=== PATIENT | male | born 1965 | race Caucasian/White ===

== ENCOUNTER 2019-12-27 09:12 | Outpatient (REF) | payer OTHER, SELFPAY ==
[2019-12-27 09:33] LABS: MANUAL DIFF FLAG NO
[2019-12-27 09:35] LABS: Basophils Absolute Auto 0.1 X10*3/uL (0.0-0.2); Basophils Percent Auto 0.9 % (0-2); Eosinophils Absolute Auto 0.3 X10*3/uL (0.0-0.4); Eosinophils Percent Auto 5.3 % (0-4); Hematocrit 44.9 % (42-52); Hemoglobin 15.5 g/dl (14.0-18.0); Imm Gran Abs Auto 0.01 X10*3/uL (0.00-0.03); Imm Gran Pct Auto 0.2 % (0.0-0.4); Lymphocytes Absolute Auto 1.4 X10*3/uL (1.2-4.9); Lymphocytes Percent Auto 25.2 % (20-40); Mean Corpuscular HGB Conc 34.5 g/dl (31.0-36.0); Mean Corpuscular Hemoglobin 31.6 pg (27.0-33.0); Mean Corpuscular Volume 91.6 fL (80-98); Mean Platelet Volume 9.1 fL (9.4-12.4); Monocytes Absolute Auto 0.4 X10*3/uL (0.1-1.2); Neutrophils Absolute Auto 3.3 X10*3/uL (2.0-8.3); Neutrophils Percent Auto 60.4 % (45-73); Platelet Count 180 X10*3/uL (160-400); Red Cell Distribution Width 12.2 % (11.0-16.0); White Blood Count 5.5 X10*3/uL (4.8-10.8)
[2019-12-27 10:12] LABS: Alanine Aminotransferase 32 U/L (0-40); Albumin Level 4.6 g/dL (3.5-5.0); Alkaline Phosphatase 134 U/L (39-117); Anion Gap 11 (12-20); Aspartate Amino Transferase 21 U/L (5-37); Blood Urea Nitrogen 10 mg/dL (9-16); Carbon Dioxide 29 mmol/L (22-29); Chloride 103 mmol/L (96-108); Cholesterol 92 mg/dL; Estimated Glomerular Filt Rate > 60; Glucose Random 110 mg/dL (60-115); HDL Cholesterol 29 mg/dL; LDL Cholesterol Calculated 31 mg/dl; Potassium 4.3 mmol/l (3.3-5.1); Sodium 139 mmol/L (135-145); Triglycerides 163 mg/dL
[2019-12-27 10:20] LABS: Prostate Specific Antigen 0.42 ng/mL (<0.05-4.0); Thyroid Stimulating Hormone 1.14 mIU/mL (0.32-4.0); Vitamin D 25-OH Total 30.6 ng/mL (>30)
== END 2019-12-27 09:13 | disposition home or self-care (01) ==
LOC: HO.LAB 09:12
PROVIDERS: Visit Provider Internal Medicine
DX: E55.9 Vitamin D deficiency, unspecified (principal); Z00.00 Encounter for general adult medical examination without abnormal findings; E78.1 Pure hyperglyceridemia; F41.9 Anxiety disorder, unspecified
CPT/HCPCS: 36415; 80053; 80061; 82306; 84153; 84443; 85025

== ENCOUNTER 2020-08-28 07:09 | Outpatient (REF) | payer OTHER, SELFPAY ==
[2020-08-28 07:47] LABS: MANUAL DIFF FLAG NO
[2020-08-28 07:51] LABS: Basophils Absolute Auto 0.1 X10*3/uL (0.0-0.2); Basophils Percent Auto 1.1 % (0-2); Eosinophils Absolute Auto 0.4 X10*3/uL (0.0-0.4); Hematocrit 43.7 % (42-52); Hemoglobin 15.3 g/dl (14.0-18.0); Imm Gran Abs Auto 0.02 X10*3/uL (0.00-0.03); Imm Gran Pct Auto 0.3 % (0.0-0.4); Lymphocytes Absolute Auto 1.5 X10*3/uL (1.2-4.9); Lymphocytes Percent Auto 24.4 % (20-40); Mean Corpuscular Hemoglobin 31.5 pg (27.0-33.0); Mean Corpuscular Volume 89.9 fL (80-98); Mean Platelet Volume 9.2 fL (9.4-12.4); Monocytes Absolute Auto 0.6 X10*3/uL (0.1-1.2); Neutrophils Absolute Auto 3.7 X10*3/uL (2.0-8.3); Neutrophils Percent Auto 59.2 % (45-73); Platelet Count 190 X10*3/uL (160-400); Red Blood Count 4.86 X10*6/uL (4.60-5.80); Red Cell Distribution Width 12.1 % (11.0-16.0); White Blood Count 6.3 X10*3/uL (4.8-10.8)
[2020-08-28 08:13] LABS: Alanine Aminotransferase 29 U/L (0-40); Albumin Level 4.4 g/dL (3.5-5.0); Alkaline Phosphatase 163 U/L (39-117); Anion Gap 15 (12-20); Aspartate Amino Transferase 17 U/L (5-37); Bilirubin Total 0.6 mg/dL (0.0-1.0); Blood Urea Nitrogen 16 mg/dL (9-16); Calcium 8.8 mg/dL (8.4-10.2); Carbon Dioxide 23 mmol/L (22-29); Chloride 106 mmol/L (96-108); Cholesterol 104 mg/dL; Estimated Glomerular Filt Rate > 60; Glucose Fasting 116 mg/dL (60-99); HDL Cholesterol 25 mg/dL; Potassium 3.9 mmol/L (3.3-5.1); Sodium 140 mmol/L (135-145); Total Protein 6.9 g/dL (6.5-8.0); Triglycerides 400 mg/dL
[2020-08-28 08:35] LABS: Thyroid Stimulating Hormone 1.22 uIU/mL (0.32-4.0); Vitamin D 25-OH Total 28.2 ng/mL (>30)
== END 2020-08-28 07:10 | disposition home or self-care (01) ==
LOC: HO.LAB 07:09
PROVIDERS: PCP Internal Medicine; Visit Provider Internal Medicine
DX: E78.1 Pure hyperglyceridemia (principal); E55.9 Vitamin D deficiency, unspecified
CPT/HCPCS: 36415; 80053; 80061; 82306; 84443; 85025

== ENCOUNTER 2020-12-25 10:07 | Outpatient (REF) | payer OTHER, SELFPAY ==
[2020-12-25 10:59] LABS: Appearance Urine CLEAR; Color Urine YELLOW; Glucose Urine UA NEG (NEG); Leukocyte Esterase Urine NEG (NEG); Nitrite Urine NEG (NEG); Specific Gravity - Urine >= 1.030 (1.005-1.025); Urine Blood NEG (NEG); Urine Ketones NEG (NEG); Urine Protein NEG (NEG-TRACE)
[2020-12-25 11:28] LABS: Alanine Aminotransferase 27 U/L (0-40); Albumin Level 4.8 g/dL (3.5-5.0); Alkaline Phosphatase 127 U/L (39-117); Anion Gap 14 (12-20); Aspartate Amino Transferase 20 U/L (5-37); Blood Urea Nitrogen 14 mg/dL (9-16); Carbon Dioxide 25 mmol/L (22-29); Chloride 104 mmol/L (96-108); Cholesterol 124 mg/dL; Estimated Glomerular Filt Rate > 60; Glucose Fasting 113 mg/dL (60-99); HDL Cholesterol 32 mg/dL; LDL Cholesterol Calculated 36 mg/dl; Potassium 4.6 mmol/L (3.3-5.1); Sodium 138 mmol/L (135-145); Total Protein 7.4 g/dL (6.5-8.0); Triglycerides 281 mg/dL
[2020-12-25 12:00] LABS: Vitamin D 25-OH Total 29.8 ng/mL (>30)
== END 2020-12-25 10:08 | disposition home or self-care (01) ==
LOC: HO.LAB 10:07
PROVIDERS: PCP Internal Medicine; Visit Provider Internal Medicine
DX: E78.1 Pure hyperglyceridemia (principal); E55.9 Vitamin D deficiency, unspecified
CPT/HCPCS: 36415; 80053; 80061; 81003; 82306

== ENCOUNTER → 2021-02-23 15:44 | Outpatient (BNVA) | payer OTHER, SELFPAY | PROVIDERS: PCP Internal Medicine; Visit Provider Surgery ==

== ENCOUNTER 2021-03-29 15:26 | Outpatient (REF) | payer OTHER, SELFPAY ==
--- NOTE | ~2021-03-29 | US_ITS ---
EXAMINATION: US ABDOMEN LIMITED CLINICAL INFORMATION: Localized swelling, mass and lump, unspecified. Subcutaneous mass. History of cyst excision to area of concern in 2019. COMPARISON: None TECHNIQUE: Real-time imaging of the right back. FINDINGS: There is a 4.2 x 4.1 x 2.3 cm solid heterogeneous appearing lesion just deep to the skin in the area of palpable abnormality. This has slightly irregular lobulated contours. This appears hypervascular. There may be small calcifications. Ultrasound appearance is nonspecific. This would be amenable to ultrasound-guided aspiration/biopsy. US/US abdomen limited IMPRESSION: 4.2 x 4.1 x 2.3 cm heterogeneous hypervascular irregularly-shaped lesion. Ultrasound appearance is nonspecific. This would be amenable to ultrasound-guided biopsy.
== END 2021-03-29 15:27 | disposition home or self-care (01) ==
LOC: HO.US 15:26
PROVIDERS: Visit Provider Surgery
DX: R22.9 Localized swelling, mass and lump, unspecified (principal)
CPT/HCPCS: 76705

== ENCOUNTER → 2021-05-12 14:57 | Outpatient (BNVA) | payer OTHER, SELFPAY | PROVIDERS: PCP Internal Medicine; Visit Provider Surgery | DX: Z13.89 Encounter for screening for other disorder (principal) ==

== ENCOUNTER 2021-05-27 08:34 | Day surgery (SDC) | payer OTHER, SELFPAY ==
[2021-05-23 12:51] VITALS: BMI 25.3
--- NOTE | 2021-05-26 10:00 | HO.ANESPROP2 ---
Documented by User: Leeanna Kingston NP 05/26/21 10:00 HPI - Anesthesia Eval Consult details Narrative: 55yo M for Colonoscopy [facility] Active Problems Active Problems: All Active Problems (Updated 05/23/21 @ 12:43 by Sangeeta Eaton RN) Subcutaneous mass (Acute) Hyperlipidemia (Acute) Past Medical History Medical History Anxiety History of COVID-19 Hyperlipidemia Subcutaneous mass Family History Family History Other Family history of cancer Surgical History Surgical History H/O colonoscopy History of knee surgery Social History Social History Alcohol intake: current Alcohol intake frequency: a few times a month Patient Tobacco Use Status: Never used Tobacco Use of substances other than those prescribed or required for medical reasons: No Advance Directives: No Advance Directives Information Provided: Yes Advance Directives on File: No Meds Allergies Allergy/AdvReac Type Severity Reaction Status Date / Time No Known Allergies Allergy Verified 05/12/21 15:10 [No Known Allergies*] Home Medications Medication Instructions Recorded Confirmed Last Taken Type cholecalciferol (vitamin D3) 25 25 mcg PO DAILY 02/23/21 05/23/21 Unknown History mcg (1,000 unit) tablet rosuvastatin 40 mg tablet 40 mg PO DAILY 02/23/21 05/23/21 Unknown History sertraline 50 mg tablet 50 mg PO DAILY 02/23/21 05/23/21 Unknown History Exam Exam Date and Time: May 26, 2021 1000 Height,Weight and Vital Signs: Height 5 ft 6 in Weight 71.214 kg Assessment and Plan Assessment Anesthesia Assessment: Chart Reviewed Documented by User: Dixie Meza MD 05/27/21 09:50 PMFSH Past Medical History Medical History Anxiety History of COVID-19 Hyperlipidemia Subcutaneous mass Functional capacity: independent ambulation Family History Family History Other Family history of cancer Family history of problems with anesthesia: No Surgical History Surgical History H/O colonoscopy History of knee surgery History of Problems with Anesthesia: No Social History Social History Alcohol intake: current Alcohol intake frequency: a few times a month Patient Tobacco Use Status: Never used Tobacco Use of substances other than those prescribed or required for medical reasons: No Advance Directives: No Advance Directives Information Provided: Yes Advance Directives on File: No Meds Allergies Allergy/AdvReac Type Severity Reaction Status Date / Time No Known Allergies Allergy Verified 05/12/21 15:10 [No Known Allergies*] Home Medications Medication Instructions Recorded Confirmed Last Taken Type cholecalciferol (vitamin D3) 25 25 mcg PO DAILY 02/23/21 05/23/21 Unknown History mcg (1,000 unit) tablet rosuvastatin 40 mg tablet 40 mg PO DAILY 02/23/21 05/23/21 Unknown History sertraline 50 mg tablet 50 mg PO DAILY 02/23/21 05/23/21 Unknown History Exam Airway Mallampati Class: II TM Dist: >3cm Neck ROM: Full Heart: RRR Lungs: CTA Assessment and Plan Final Anesthetic Review Family History of Problems with Anesthesia: No History of Problems with Anesthesia: No ASA Class: II Final Preanesthetic Review: No Changes in Pt Med Stat, Meds/Allgs Chart Reviewed, Consent Obtained/Reviewed and Anes Risks/Benef Reviewed Patient Risk: Low Procedure Risk: Low Anesthetic Plan Anesthetic Plan: MAC: Disposition: Standard PACU
[2021-05-27 09:14] VITALS: BP 140/83; PULSE 81; RESP 16; TEMP 36.9; O2SAT 97
[2021-05-27] MEDS: Lactated Ringers 1,000 ML 100 ML IVCONT (09:25)
--- NOTE | 2021-05-27 10:03 | MHC.SHP ---
Pre-Procedural Eval Section A Date of Service: 05/27/21 The patient is an INPATIENT: No Changes since office visit: No Cold of Flu in the past 2 weeks, No New Medical Problems, No Changes in Medication and No Patient answered all questions The History & Physical has been completed within 30 days and I have reviewed it.: Yes Section B Chief Complaint: screening Allergies: Allergies Allergy/AdvReac Type Severity Reaction Status Date / Time No Known Allergies Allergy Verified 05/12/21 15:10 [No Known Allergies*] Plan I have reviewed the history and physical and performed a pertinent physical examination on my patient. No changes have occurred unless specified.
[2021-05-27 10:57] VITALS: BP 109/73; PULSE 81; RESP 16; TEMP 36.5; O2SAT 96
--- NOTE | 2021-05-27 11:01 | PM.OP ---
Brief Operative Note Date of Service: 05/27/21 Pre-op diagnosis: screening Post-op diagnosis: same (polyps) Procedure: colonoscopy Surgeon: Valentin Tao Anesthesia: MAC Was an Day Care Provider used for this Procedure?: No Estimated blood loss (mL): 5 Pathology: other (polyps) Condition: stable Disposition: PACU
[2021-05-27 11:12] VITALS: BP 107/72; PULSE 76; RESP 18; O2SAT 100
--- NOTE | 2021-05-27 11:28 | OP_ITS ---
SURGEON: Valentin Tao MD INDICATIONS: Colon cancer screening and prior history of adenomatous colon polyps. PREOPERATIVE DIAGNOSIS: POSTOPERATIVE DIAGNOSIS: PROCEDURE PERFORMED: Colonoscopy to the terminal ileum with snare polypectomy. ESTIMATED BLOOD LOSS: COMPLICATIONS: ANESTHESIA: ASSISTANTS: SPECIMENS: MEDICATIONS: Monitored anesthesia care. DESCRIPTION OF PROCEDURE: History and physical were performed. The risks and benefits of the procedure were explained to the patient. Informed consent was obtained. The patient was placed in the left lateral decubitus position. A digital rectal exam was performed and was found to be normal. The Olympus pediatric video colonoscope was introduced into the rectum and advanced to the cecum without difficulty. The cecum was identified by transillumination, palpation, and identification of ileocecal valve. Examination was performed. The scope was removed. He tolerated the procedure well and was taken to recovery area in stable condition. FINDINGS: The terminal ileum was normal. Multiple colonic polyps were identified and removed with a snare. In the cecum were 3 polyps, the largest measuring approximately 10 mm. At 55 cm were 2 polyps, the largest measuring 10 mm. These were snared, but could not be recovered due to technical reasons. Polyps were also snared at 45 cm, 30 cm and 20 cm with the largest at 20 cm measuring 10 mm. The quality of prep was good. Retroflexed examination was normal. IMPRESSION: Colon polyps. RECOMMENDATION: 1. Follow up the biopsy results. 2. Repeat colonoscopy will likely be recommended for 3 years. MD LIVIA Boggs/RHETTL / [id number]
--- NOTE | 2021-05-27 11:31 | HO.POSTANES ---
Post Anesthesia Evaluation Post Anesthesia Evaluation Vital Signs: Vital Signs Temp Pulse Resp BP Pulse Ox 05/27/21 11:12 76 18 107/72 100 05/27/21 10:57 97.7 F 81 16 109/73 96 05/27/21 09:14 98.5 F 81 16 140/83 H 97 Anesthesia: Monitored Mental Status: Awake Pain Control: Satisfactory Nausea/Vomiting: None Hydration: Adequate Anesthesia-Related Issues: No Anes. Related Issues
== END 2021-05-27 11:40 | disposition home or self-care (01) ==
PROVIDERS: Visit Provider Internal Medicine Gastroenterology
PROC: 0DJD8ZZ Inspection of Lower Intestinal Tract, Via Natural or Artificial Opening Endoscopic (ICD-10-PCS; CPT 45378; principal; 2021-05-27 10:10)
DX: Z12.11 Encounter for screening for malignant neoplasm of colon (principal); D12.0 Benign neoplasm of cecum; D12.6 Benign neoplasm of colon, unspecified; Z86.010 Personal history of colon polyps
CPT/HCPCS: 45385; 88305

== ENCOUNTER 2021-07-12 07:26 | Day surgery (SDC) | payer OTHER, SELFPAY ==
--- NOTE | 2021-07-11 11:32 | P.CONAN_ITS ---
Documented by User: Leeanna Kingston NP 07/11/21 11:32 HPI - Anesthesia Eval Consult details Narrative: 55yo M for Excision Low Back Mass s/p colo 05/2021 with TIVA PMFSH Active Problems Active Problems: All Active Problems (Updated 05/23/21 @ 12:43 by Sangeeta Eaton RN) Subcutaneous mass (Acute) Hyperlipidemia (Acute) Past Medical History Medical History Anxiety History of COVID-19 Hyperlipidemia Subcutaneous mass Family History Family History Other Family history of cancer Family history of problems with anesthesia: No Surgical History Surgical History H/O colonoscopy History of knee surgery History of Problems with Anesthesia: No Social History Social History Alcohol intake: current Alcohol intake frequency: a few times a month Patient Tobacco Use Status: Never used Tobacco Are you DNR?: No Advance Directives: No Advance Directives Information Provided: Yes Meds Allergies Allergy/AdvReac Type Severity Reaction Status Date / Time No Known Allergies Allergy Verified 07/06/21 11:39 [No Known Allergies*] Home Medications Medication Instructions Recorded Confirmed Last Taken Type cholecalciferol (vitamin D3) 25 25 mcg PO DAILY 02/23/21 07/06/21 Unknown History mcg (1,000 unit) tablet rosuvastatin 40 mg tablet 40 mg PO DAILY 02/23/21 07/06/21 Unknown History sertraline 50 mg tablet 50 mg PO DAILY 02/23/21 07/12/21 07/12/21 History Exam Exam Date and Time: July 11, 2021 1132 Assessment and Plan Assessment Anesthesia Assessment: Chart Reviewed Final Anesthetic Review Family History of Problems with Anesthesia: No History of Problems with Anesthesia: No Documented by User: Dixie Meza MD 07/12/21 09:01 [facility] Past Medical History Medical History Anxiety History of COVID-19 Hyperlipidemia Subcutaneous mass Functional capacity: independent ambulation Family History Family History Other Family history of cancer Surgical History Surgical History H/O colonoscopy History of knee surgery Social History Social History Alcohol intake: current Alcohol intake frequency: a few times a month Patient Tobacco Use Status: Never used Tobacco Are you DNR?: No Advance Directives: No Advance Directives Information Provided: Yes Meds Allergies Allergy/AdvReac Type Severity Reaction Status Date / Time No Known Allergies Allergy Verified 07/06/21 11:39 [No Known Allergies*] Home Medications Medication Instructions Recorded Confirmed Last Taken Type cholecalciferol (vitamin D3) 25 25 mcg PO DAILY 02/23/21 07/06/21 Unknown History mcg (1,000 unit) tablet rosuvastatin 40 mg tablet 40 mg PO DAILY 02/23/21 07/06/21 Unknown History sertraline 50 mg tablet 50 mg PO DAILY 02/23/21 07/12/21 07/12/21 History Exam Airway Mallampati Class: II TM Dist: >3cm Neck ROM: Full Heart: RRR Lungs: CTA Assessment and Plan Final Anesthetic Review Final Preanesthetic Review: No Changes in Pt Med Stat, Meds/Allgs Chart Reviewed and Consent Obtained/Reviewed Patient Risk: Low Procedure Risk: Low Anesthetic Plan Anesthetic Plan: GA and MAC: Disposition: Standard PACU
[2021-07-12 06:17] VITALS: BMI 23.1
[2021-07-12 07:49] VITALS: BP 118/65; PULSE 86; RESP 17; TEMP 36.1; O2SAT 97
[2021-07-12] MEDS: Lactated Ringers 1,000 ML 100 ML IVCONT (08:05)
--- NOTE | 2021-07-12 09:27 | P.HPSUR_ITS ---
Pre-Procedural Eval Section A Date of Service: 07/12/21 Section B Chief Complaint: Localized swelling, mass and lump Details of Present Illness: Has a large mass on the lower back with discomfort Relevant Family History (Specify if Yes): No Relevant Social History: None Present Medications: see Short Stay Collaborative assessment Medical History: Significant History ( hyperlipidemia) History of Previous Operations: No relevant previous surgery Allergies: Allergies Allergy/AdvReac Type Severity Reaction Status Date / Time No Known Allergies Allergy Verified 07/06/21 11:39 [No Known Allergies*] Review of Systems Sugical H&P ROS: Negative: Constitution, Cardiovascular, Respiratory, Neurological, Psychiatric, Hem-Onc, Allergic/Immunologic, Gastrointestinal, Genitourinary, Musculoskeletal, Integumentary, Endocrine and Ey es/Ears/Nose/Throat Exam Surgical H&P Exam: Normal: HEENT, Normal: Heart, Normal: Lungs, Normal: Extremities, Normal: Abdomen, Normal: Skin and Normal: Neurological Exam Comment: subcutaneous mass on the lower back about cm in diameter well-defined, likely an epidermal inclusion cyst Plan Diagnosis/Plan: Unchanged I have reviewed the history and physical and performed a pertinent physical examination on my patient. No changes have occurred unless specified.
--- NOTE | 2021-07-12 10:29 | W.PM.OPN ---
Operative Note Operative Note Date of Service: 07/12/21 Narrative: Preop diagnosis: large epidermal inclusion cyst, lower back Postop diagnosis: The same Procedure: Excision of a large there will inclusion cyst from the lower back Surgeon: Roby Churchill MD The patient is a 55 year old male with note of a large mass on the lower back. This appeared to be well defined. He has had episode redness, tenderness as well as drainage and the overall presentation was consistent with an epidermal inclusion cyst. He understood the technique of excision under anesthesia. He was aware of the risks, benefits, and alternatives . He was brought to the operating room and placed in left lateral decubitus position under anesthesia via endotracheal tube. A surgical time-out was done. The the of the mass was prepped and draped. Lidocaine 1% was used for local anesthesia and the made an elliptical incision on the skin overlying this mass using blade 15. This carried down with electrocautery through the full-thickness of skin and subcutaneous fat until was able to visualize what appeared to be a cyst capsule. I sharply dissected the cyst capsule off of the rest of the subcutaneous layer with the cautery as well as Metzenbaum scissors. I continued to dissect posteriorly to separate the entire mass from the rest of the deep subcutaneous layer. I delivered the specimen. This measured about 5.5 cm by 3 cm. I irrigated the area of excision. I cauterized bleeding areas. Once hemostasis was ensured, proceeded then reapposed the deep subcutaneous layer with Dexon 3-0 interrupted sutures. Skin closure was achieved with Dexon 3-0 interrupted sutures. Dressings were applied. The area was infiltrated with Marcaine 0.5% for postop analgesia. The procedure was then completed . . The patient tolerated procedure well. There were no complications noted. Estimated blood loss about 30 cc The patient was extubated without difficulty and transferred to the recovery room with stable vital signs.
[2021-07-12 11:14] VITALS: BP 125/70; PULSE 90; RESP 16; TEMP 36.4; O2SAT 100
[2021-07-12 11:19] VITALS: BP 122/70; PULSE 86; RESP 16; O2SAT 96
[2021-07-12 11:24] VITALS: BP 122/74; PULSE 90; RESP 16; O2SAT 95
[2021-07-12 11:29] VITALS: BP 127/68; PULSE 91; RESP 16; O2SAT 94
[2021-07-12 11:44] VITALS: BP 111/68; PULSE 88; RESP 16; TEMP 36.1; O2SAT 95
--- NOTE | 2021-07-12 11:56 | P.CONAN_ITS ---
[facility], [facility] Active Problems Active Problems: All Active Problems (Updated 05/23/21 @ 12:43 by Sangeeta Eaton RN) Subcutaneous mass (Acute) Hyperlipidemia (Acute) Past Medical History Medical History Anxiety History of COVID-19 Hyperlipidemia Subcutaneous mass Functional capacity: independent ambulation Family History Family History Other Family history of cancer Family history of problems with anesthesia: No Surgical History Surgical History H/O colonoscopy History of knee surgery History of Problems with Anesthesia: No Social History Social History Alcohol intake: current Alcohol intake frequency: a few times a month Patient Tobacco Use Status: Never used Tobacco Are you DNR?: No Advance Directives: No Advance Directives Information Provided: Yes Meds Allergies Allergy/AdvReac Type Severity Reaction Status Date / Time No Known Allergies Allergy Verified 07/06/21 11:39 [No Known Allergies*] Active Medications: Current Medications Acetaminophen (Acetaminophen 325 Mg Tablet) 650 mg PO ONCE PRN PRN Reason: Pain, Mild (Pain Scale 1-3) Fentanyl (Fentanyl Citrate/Pf 100 Mcg/2 Ml Vial) 25 mcg IVPUSH Q5M PRN; Protocol PRN Reason: Pain, Moderate (Pain Scale 4-6 Lactated Ringer's (Lr) 1,000 mls @ 100 mls/hr IVCONT .Q10H PARVEZ Last Admin: 07/12/21 08:05 Dose: 100 mls/hr Documented by: Ondansetron HCl (Ondansetron Hcl 4 Mg/2 Ml Vial) 4 mg IVPUSH ONCE PRN PRN Reason: Nausea and Vomiting Oxycodone HCl (Oxycodone Hcl Immed Release 5 Mg Tablet) 5 mg PO ONCE PRN PRN Reason: Pain, Severe (Pain Scale 7-10) Home Medications Medication Instructions Recorded Confirmed Last Taken Type cholecalciferol (vitamin D3) 25 25 mcg PO DAILY 02/23/21 07/06/21 Unknown History mcg (1,000 unit) tablet rosuvastatin 40 mg tablet 40 mg PO DAILY 02/23/21 07/06/21 Unknown History sertraline 50 mg tablet 50 mg PO DAILY 02/23/21 07/12/21 07/12/21 History Exam Exam Date and Time: July 12, 2021 1156 Height,Weight and Vital Signs: Height 5 ft 7 in Weight 67.132 kg Last Vital Signs Temp 97.0 F 07/12/21 11:44 Pulse 88 07/12/21 11:44 Resp 16 07/12/21 11:44 BP 111/68 07/12/21 11:44 Pulse Ox 95 07/12/21 11:44 Assessment and Plan Final Anesthetic Review Family History of Problems with Anesthesia: No History of Problems with Anesthesia: No
--- NOTE | 2021-07-12 13:52 | HO.POSTANES ---
Post Anesthesia Evaluation Post Anesthesia Evaluation Vital Signs: Vital Signs Temp Pulse Resp BP Pulse Ox 07/12/21 11:44 97.0 F 88 16 111/68 95 07/12/21 11:29 91 16 127/68 94 07/12/21 11:24 90 16 122/74 95 07/12/21 11:19 86 16 122/70 96 07/12/21 11:14 97.5 F 90 16 125/70 100 07/12/21 07:49 97 F 86 17 118/65 97 Anesthesia: General Pain Control: Satisfactory Nausea/Vomiting: None Hydration: Adequate
== END 2021-07-12 13:02 | disposition home or self-care (01) ==
PROVIDERS: PCP Internal Medicine; Visit Provider Surgery
PROC: (CPT 21931; principal; 2021-07-12 09:40)
DX: D23.5 Other benign neoplasm of skin of trunk (principal); E78.5 Hyperlipidemia, unspecified; F41.1 Generalized anxiety disorder; Z86.16 Personal history of COVID-19
CPT/HCPCS: 21931; 88304; 88305; 88311; J0690; J1885; J2250; J2405; J3010

== ENCOUNTER 2022-10-23 11:53 | Outpatient (REF) | payer OTHER, SELFPAY ==
[2022-10-23 12:03] LABS: MANUAL DIFF FLAG NO
[2022-10-23 13:00] LABS: Basophils Absolute Auto 0.1 X10*3/uL (0.0-0.2); Basophils Percent Auto 0.7 % (0-2); Eosinophils Absolute Auto 0.4 X10*3/uL (0.0-0.4); Hematocrit 42.5 % (42.0-52.0); Imm Gran Abs Auto 0.02 X10*3/uL (0.00-0.03); Imm Gran Pct Auto 0.3 % (0.0-0.4); Lymphocytes Absolute Auto 1.7 X10*3/uL (1.2-4.9); Lymphocytes Percent Auto 22.1 % (20-40); Mean Corpuscular HGB Conc 35.3 g/dl (31.0-36.0); Mean Corpuscular Hemoglobin 31.6 pg (27.0-33.0); Mean Corpuscular Volume 89.7 fL (80.0-98.0); Mean Platelet Volume 9.3 fL (9.4-12.4); Monocytes Absolute Auto 0.6 X10*3/uL (0.1-1.2); Monocytes Percent Auto 7.8 % (2-11); Neutrophils Absolute Auto 4.8 x10*3/uL (2.0-8.3); Neutrophils Percent Auto 64.1 % (45-73); Platelet Count 189 X10*3/uL (160-400); Red Blood Count 4.74 X10*6/uL (4.60-5.80); Red Cell Distribution Width 12.2 % (11.0-16.0); White Blood Count 7.5 X10*3/uL (4.8-10.8)
[2022-10-23 13:56] LABS: Alanine Aminotransferase 34 U/L (0-40); Albumin Level 4.7 g/dL (3.5-5.0); Alkaline Phosphatase 109 U/L (39-117); Anion Gap 12 (12-20); Aspartate Amino Transferase 22 U/L (5-37); Blood Urea Nitrogen 12 mg/dL (9-16); Calcium 9.1 mg/dL (8.4-10.2); Carbon Dioxide 29 mmol/L (22-29); Chloride 106 mmol/L (96-108); Cholesterol 111 mg/dL (<200); Estimated Glomerular Filt Rate > 60; Glucose Fasting 97 mg/dL (60-99); HDL Cholesterol 32 mg/dL (>40); LDL Cholesterol Calculated 13 mg/dL (<100); Sodium 143 mmol/L (135-145); Total Protein 7.4 g/dL (6.5-8.0); Triglycerides 332 mg/dL (<150)
[2022-10-23 14:13] LABS: Thyroid Stimulating Hormone 1.34 uIU/mL (0.32-4.0); Vitamin D 25-OH Total 34.7 ng/mL (>30)
== END 2022-10-23 11:54 | disposition home or self-care (01) ==
LOC: HO.LAB 11:53
PROVIDERS: PCP Internal Medicine; Visit Provider Internal Medicine
DX: F41.9 Anxiety disorder, unspecified (principal); E78.1 Pure hyperglyceridemia; E55.9 Vitamin D deficiency, unspecified; R06.83 Snoring
CPT/HCPCS: 36415; 80053; 80061; 82306; 84443; 85025

== ENCOUNTER 2023-03-09 13:14 | Outpatient (AMB) | payer OTHER, SELFPAY ==
--- NOTE | 2023-03-09 13:16 | A.OFFVIS_ITS ---
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 He was referred by PCP for pulmonary evaluation. He reports symptoms suggestive of EYAL with loud snoring and daytime fatigue. He denies previous sleep study. He denies any respiratory symptoms otherwise and is not on any respiratory medications. He denies any pertinent family history. He denies any occupational exposures. He denies any environmental allergies. [facility] Medical History Anxiety History of COVID-19 Hyperlipidemia Subcutaneous mass Surgical History H/O colonoscopy History of knee surgery Family History Other Family history of cancer Social History (Updated 03/09/23 @ 13:26 by Linda Higuera LPN) Alcohol intake: current Alcohol intake frequency: a few times a month Patient Tobacco Use Status: Never used Tobacco Smoked in Last 30 Days: No Review of Systems Const Denies chills, Denies excessive sweating, Denies fever(s), Denies headache(s) and Denies night sweats Eyes Denies dry eyes, Denies irritation and Denies itchy eyes ENT Reports Normal hearing present, Denies headache(s), Denies nasal congestion, Denies nasal discharge, Denies post nasal drip and Denies sore throat Card Denies chest pain, Denies chest pain at rest, Denies chest pain with activity, Denies claudication, Denies leg edema, Denies dyspnea, Denies dyspnea on exertion, Denies orthopnea and Denies paroxysmal nocturnal dyspnea Resp Denies chest congestion, Denies cough, Denies excessive phlegm production, Denies pain on inspiration, Denies pain with cough, Denies dyspnea, Denies dyspnea on exertion, Denies stridor and Denies wheezing Musc Denies myalgias Neuro Reports Normal hearing present and Denies headache(s) Endo Denies excessive sweating Tadeo/Lymph Denies lymphadenopathy Aller/Immun Denies itchy eyes, Denies seasonal rhinorrhea and Denies wheezing Physical Exam Vital Signs: Last Vital Signs Pulse 70 03/09/23 13:17 BP 128/70 03/09/23 13:17 Pulse Ox 97 03/09/23 13:17 Oxygen Delivery Method Room Air 03/09/23 13:17 BMI result Body Mass Index 26.6 Const General: cooperative, healthy appearing, comfortable, no acute distress, well developed and alert Orientation/consciousness: patient oriented x3 Limitations: no limitations HEENT Head: Yes normal to inspection, Yes normocephalic and Yes atraumatic Ears: hearing grossly normal bilaterally and external ears normal Eyes General: appearance normal, both eyes and all related structures Eyelids: Yes eyelids normal Sclerae: sclerae normal EOM: EOMs intact bilaterally Neck Neck: Yes normal visual inspection and Yes no lymphadenopathy Lymphatic: no lymphadenopathy noted Chest Chest palpation & inspection: normal inspection of the chest Resp Effort & Inspection: normal respiratory effort, able to speak in complete sentences, no audible wheezes, no cough, no stridor, not tachypneic, no tripod positioning and no use of accessory muscles Auscultation: clear to auscultation bilaterally Cardio Jugular venous distension: no JVD Rate: regular rate Rhythm: regular rhythm Skin Other: warm, dry General skin exam: no rashes or lesions noted Neuro General: patient oriented x3 Cranial nerves: Yes Normal hearing present Cognition (Neuro): normal cognition Gait exam (Neuro): Normal gait present Extrem General: Yes normal to inspection, Yes capillary refill normal, Yes no clubbing, cyanosis or edema and Yes no pedal edema Psych Appearance: grossly normal and well kempt Speech and movement: Normal speech and movement present and Clear speech present Affect: normal affect Attitude: cooperative Thought process: Normal thought process present Thought content: Normal thought content present Insight: Good insight present (Psych) Judgement: Good judgement present (Psych) Assessment & Plan Assessment & Plan (1) Daytime somnolence: Code(s): R40.0 - Somnolence Plan Tevin reports symptoms consistent with obstructive sleep apnea. Will send for home sleep study to evaluate. All questions were answered and patient is in agreement of plan. Will follow up to review results. Orders: Orders RT home sleep study Today R40.0 - Somnolence Coding Level of Care Code New Pt Level 3 (92834) Diagnoses Daytime somnolence R40.0
[2023-03-09 13:17] VITALS: BP 128/70; PULSE 70; O2SAT 97; BMI 26.6
== END 2023-03-09 13:42 | disposition home or self-care (01) ==
PROVIDERS: PCP Internal Medicine; Referring Provider Internal Medicine; Visit Provider Nurse Practitioner Family
DX: R40.0 Somnolence (principal)
CPT/HCPCS: 99203

== ENCOUNTER → 2023-03-09 13:14 | Outpatient (BNVA) | payer OTHER, SELFPAY | PROVIDERS: PCP Internal Medicine; Referring Provider Internal Medicine; Visit Provider Nurse Practitioner Family ==

== ENCOUNTER 2023-05-05 07:27 | Outpatient (REF) | payer OTHER, SELFPAY ==
[2023-05-05 08:52] LABS: Prostate Specific Antigen 0.49 ng/mL (<0.05-4.0)
== END 2023-05-05 07:28 | disposition home or self-care (01) ==
LOC: HO.LAB 07:27
PROVIDERS: PCP Internal Medicine; Visit Provider Internal Medicine
DX: Z12.5 Encounter for screening for malignant neoplasm of prostate (principal)
CPT/HCPCS: 36415; 84153

== ENCOUNTER → 2023-11-06 07:51 | Outpatient (REF) | payer OTHER, SELFPAY | LOC: HO.SL 07:51 | PROVIDERS: PCP Internal Medicine; Visit Provider Nurse Practitioner Family | DX: Z13.89 Encounter for screening for other disorder (principal) ==

== ENCOUNTER → 2024-01-08 13:54 | Outpatient (REF) | payer OTHER, SELFPAY | LOC: HO.SL 13:54 | PROVIDERS: PCP Internal Medicine; Visit Provider Internal Medicine | DX: G47.33 Obstructive sleep apnea (adult) (pediatric) (principal); R40.0 Somnolence | CPT/HCPCS: 95806 ==

== ENCOUNTER → 2024-01-27 19:00 | Outpatient (BNV) | payer OTHER, SELFPAY | PROVIDERS: PCP Internal Medicine; Visit Provider Internal Medicine | DX: G47.33 Obstructive sleep apnea (adult) (pediatric) (principal) | CPT/HCPCS: 95806 ==

== ENCOUNTER 2024-02-08 15:07 | Outpatient (AMB) | payer OTHER, SELFPAY ==
[2024-02-08 15:10] VITALS: BP 128/76; PULSE 80; O2SAT 98; BMI 26.8
--- NOTE | 2024-02-08 15:10 | A.OFFVIS_ITS ---
Vital Signs 02/08/24 15:10 Height 5 ft 7 in Weight 171 lb 6 oz BMI 26.8 BP 128/76 Blood Pressure Location Rt brachial Position Sitting Pulse 80 Pulse Source Pulse Oximeter Pulse Oximetry (%) 98 Oxygen Delivery Method Room Air Intake Visit Reasons: Somnolence Allergies No Known Allergies [No Known Allergies*] Allergy (Verified 02/08/24 15:12) HPI HPI Somnolence: Details: Tevin is a pleasant 58 year old male, never smoker, with underlying GERD and anxiety. At the last visit, he was sent for home sleep study for significant loud snoring and daytime fatigue. Today he presents to review results. Today he denies any respiratory symptoms. [facility], [facility] Medical History Anxiety History of COVID-19 Hyperlipidemia Subcutaneous mass Surgical History H/O colonoscopy History of knee surgery Family History Other Family history of cancer Social History Alcohol intake: current Alcohol intake frequency: a few times a month Patient Tobacco Use Status: Never used Tobacco Review of Systems Const Denies chills, Denies excessive sweating, Denies fever(s), Denies headache(s) and Denies night sweats Eyes Denies dry eyes, Denies irritation and Denies itchy eyes ENT Reports Normal hearing present, Denies headache(s), Denies nasal congestion, Denies nasal discharge, Denies post nasal drip and Denies sore throat Card Denies chest pain, Denies chest pain at rest, Denies chest pain with activity, Denies claudication, Denies leg edema, Denies dyspnea, Denies dyspnea on exertion and Denies orthopnea Resp Denies chest congestion, Denies cough, Denies excessive phlegm production, Denies pain on inspiration, Denies pain with cough, Denies dyspnea, Denies dyspnea on exertion, Denies stridor and Denies wheezing Musc Denies myalgias Neuro Reports Normal hearing present and Denies headache(s) Endo Denies excessive sweating Tadeo/Lymph Denies lymphadenopathy Aller/Immun Denies itchy eyes, Denies seasonal rhinorrhea and Denies wheezing Physical Exam Vital Signs: Last Vital Signs Pulse 80 02/08/24 15:10 BP 128/76 02/08/24 15:10 Pulse Ox 98 02/08/24 15:10 Oxygen Delivery Method Room Air 02/08/24 15:10 BMI result Body Mass Index 26.8 Const General: cooperative, healthy appearing, comfortable, no acute distress, well developed and alert Nutritional Appearance: obese Orientation/consciousness: patient oriented x3 Limitations: no limitations HEENT Head: Yes normal to inspection, Yes normocephalic and Yes atraumatic Ears: hearing grossly normal bilaterally and external ears normal Eyes General: appearance normal, both eyes and all related structures Eyelids: Yes eyelids normal Sclerae: sclerae normal EOM: EOMs intact bilaterally Neck Neck: Yes normal visual inspection and Yes no lymphadenopathy Lymphatic: no lymphadenopathy noted Chest Chest palpation & inspection: normal inspection of the chest Resp Effort & Inspection: normal respiratory effort, able to speak in complete sentences, no audible wheezes, no cough, no stridor, not tachypneic, no tripod positioning and no use of accessory muscles Auscultation: clear to auscultation bilaterally Cardio Jugular venous distension: no JVD Rate: regular rate Rhythm: regular rhythm Skin Other: warm, dry General skin exam: no rashes or lesions noted Neuro General: patient oriented x3 Cranial nerves: Yes Normal hearing present Cognition (Neuro): normal cognition Gait exam (Neuro): Normal gait present Extrem General: Yes normal to inspection, Yes capillary refill normal, Yes no clubbing, cyanosis or edema and Yes no pedal edema Psych Appearance: grossly normal and well kempt Speech and movement: Normal speech and movement present and Clear speech present Affect: normal affect Attitude: cooperative Thought process: Normal thought process present Thought content: Normal thought content present Insight: Good insight present (Psych) Judgement: Good judgement present (Psych) Assessment & Plan Assessment & Plan (1) Severe obstructive sleep apnea: Code(s): G47.33 - Obstructive sleep apnea (adult) (pediatric) Category: Medical (2) Nocturnal hypoxemia: Code(s): G47.34 - Idiopathic sleep related nonobstructive alveolar hypoventilation Category: Medical Plan Reviewed sleep study results with patient which revealed severe EYAL with an AHI of 40 and mild nocturnal hypoxemia. Since patient is quite symptomatic, will start CPAP therapy. Will send in prescription for APAP mode and pressure settings of 6-20 cm with close monitoring for compliance and benefits. Sleep hygiene education reviewed. He is aware if there are any issues with the mask or CPAP machine, he will call the office. All questions were answered and patient is in agreement of plan. Will follow up in 8 weeks. Coding Level of Care Code Est Pt Level 4 (32956) Diagnoses Severe obstructive sleep apnea G47.33 Nocturnal hypoxemia G47.34
--- OUTSIDE RECORDS SUMMARY | 2024-02-08 15:10 | XMS_ITS | Patient Health Record ---
Author Organization Jovany Rasmussen DO, FACP Address [address] [place], [place] [phone] Care Team Providers Care Last Repairer Name Role Phone Jovany Rasmussen Primary Care Provider ALLERGIES No Known Allergies RESULTS Component Value Reference Range Notes Prostate Specific Antigen Reviewed date:05/05/2023 12:19:54 PM Interpretation:Normal Performing Lab:[facility], [address] [place] [id number] Notes/Report: Prostate Specific Antigen 0.49 <0.05-4.0 ng/mL PSA methodology: [place] i Chemiluminescent Microparticle Immunoassay (CMIA) REASON FOR REFERRAL No Information MEDICATIONS Medication SIG (Take, Route, Frequency, Duration) Notes Start Date End Date Status Vitamin D3 25 MCG (1000 UT) 1 tablet Ora lly Once a day for 90 days Active Sertraline HCl 50 MG 1 tablet Orally Onc e a day for 90 days Active Rosuvastatin Calcium 40 MG 1 tablet Oral ly Once a day for 90 days Active IMMUNIZATIONS Vaccine Route Administration Date Status Comme nts TDaP IM Intramuscular 06/26/2017 Administered Influenza Quad IM Intramuscular 01/06/2020 Administered COVID-19 Moderna Vaccine Unknown 05/29/2020 Administere d COVID-19 Moderna Vaccine Unknown 06/26/2020 Administere d SOCIAL HISTORY Tobacco Use: Social History Observation Description Date Details (start date - stop date) Never Smoker NA - NA Sex Assigned At : Social History Observation Description Sex Assigned At Unknown Tobacco Use/Smoking Question Answer Notes Patient is a nonsmoker Additional Findings: Tobacco Non-User Cu rrent non-smoker, currently using no form of tobacco Alcohol Screen Question Answer Notes Did you have a drink contain ing alcohol in the past year? Yes How often did you have a dri nk containing alcohol in the past year? 2 to 4 times a month (2 points) How many drinks did you have on a typical day when you were drinking in the past year? 1 or 2 drinks (0 point) How often did you have 6 or more drinks on one occasion in the past year? Never (0 point) Points 2 Interpretation Negative PROBLEMS Problem Type ICD Code Onset Dates Problem Status W/U Status Risk SNOMED Code Notes Problem Vitamin D deficiency (E55.9) Active confirmed 24604740 Problem Anxiety (F41.9) Active confirmed 069863 02 Problem Mass (R22.9) Active confirmed 382349347 Problem Hypertriglyceridemia (E78.1) Active confirmed 890367842 VITAL SIGNS Blood pressure diastolic 80 mm Hg 02/07/2023 Height 65 in 02/07/2023 Blood pressure systolic 132 mm Hg 02/07/2023 Weight 168 lbs 02/07/2023 BMI 27.95 kg/m2 02/07/2023 Encounters Encounter Location Date Provider Diagnosis Jovany Rasmussen DO, FACP [address] [place] [phone] 02/07/2023 Jovany Rasmussen Encounter for genera l adult medical examination without abnormal findings Z00.00 ; Anxiety F41.9 ; Hypertriglyceridemia E78.1 and Vitamin D deficiency E55.9 ASSESSMENTS Encounter Date Diagnosis Assessment Notes Treatment Notes Treatment Clinical Notes 02/07/2023 Encounter for genera l adult medical examination without abnormal findings (ICD-10 - Z00.00) Check PSA. Exercise three times a week. Diet, portion control, weight loss 02/07/2023 Anxiety (ICD-10 - F41.9) 02/07/2023 Hypertriglyceridemia (ICD-10 - E78.1) Low cholesterol diet; written instructions provided 02/07/2023 Vitamin D deficiency (ICD-10 - E55.9) PLAN OF TREATMENT Next Appt Details Provider Name:Jovany jean, 02/12/2024 09:45:00 AM, [address] [place] [address], [phone], Insurance Providers Payer Name Payer Address Payer Phone Subscriber Number Group Number Insured Name Patient Relationship to Insured Coverage Start Date Coverage End Date [facility] [address] [place] [phone] [id number] Tevin Blackburn Self - patient is the insured MEDICAL (GENERAL) HISTORY Medical History History ICD Code hyperlipidemia hypertriglyceridemia anxiety gastroesophageal reflux disease (GERD) obstructive airways disease, exercise in duced Surgical History Surgery Date(Month/Year) wisdom teeth extraction right knee arthroscopy
--- OUTSIDE RECORDS SUMMARY | 2024-02-08 15:10 | XMS_ITS ---
Author Organization Jovany Rasmussen DO, FACP Address [address] [place], [place] [id number] Care Team Providers Care Social Media Marketing Specialist Name Role Phone Jovany Rasmussen Primary Care Provider REASON FOR VISIT Refill MEDICATIONS Medication SIG (Take, Route, Frequency, Duration) Notes Start Date End Date Status Rosuvastatin Calcium 40 MG 1 tablet Oral ly Once a day for 90 days Active Encounters Encounter Location Date Provider Diagnosis Jovany Rasmussen DO, FACP [address] [place] [phone] 09/29/2022 Jovany Rasmussen PLAN OF TREATMENT Medication Medication Name Sig Start Date Stop Date Notes Rosuvastatin Calcium 40 MG 1 tablet Oral ly Once a day for 90 days Next Appt Details Provider Name:Jovany jean, 02/12/2024 09:45:00 AM, [address] [place], [place], [phone],
--- OUTSIDE RECORDS SUMMARY | 2024-02-08 15:10 | XMS_ITS ---
Author Organization Jovany Rasmussen DO, FAC Address [address] [place], [place] [phone] Care Team Providers Care Certified Mortician Name Role Phone Grady Jovany Primary Care Provider ALLERGIES No Known Allergies REASON FOR VISIT physical, annual visit MEDICATIONS Medication SIG (Take, Route, Frequency, Duration) Notes Start Date End Date Status Sertraline HCl 50 MG 1 tablet Orally Onc e a day Active Vitamin D3 25 MCG (1000 UT) 1 tablet Ora lly Once a day Active Rosuvastatin Calcium 40 MG 1 tablet Oral ly Once a day Active SOCIAL HISTORY Tobacco Use: Social History Observation [...] Never (0 point) Points 2 Interpretation Negative VITAL SIGNS BMI 27.95 kg/m2 02/07/2023 Blood pressure systolic 132 mm Hg 02/08/20 23 Blood pressure diastolic 80 mm Hg 023 Height 65 in 02/07/2023 Weight 168 lbs 02/07/2023 Encounters Encounter Location Date Provider Diagnosis J[facility] Rasmussen DO, [facility] [address] [place] [phone] 02/07/2023 Jovany Rasmussen Encounter for genera l [...] deficiency (ICD-10 - E55.9) PLAN OF TREATMENT Medication Medication Name Sig Start Date Stop Date Notes Sertraline HCl 50 MG 1 tablet Orally Once a day Vitamin D3 25 MCG (1000 UT) 1 tablet Orally Once a day Rosuvastatin Calcium 40 MG 1 tablet Orally Once a day Treatment Notes Assessment Notes Encounter for general adult medical examination without abnormal findings Check PSA. Exercise three times a week. Diet, portion control, weight loss Hypertriglyceridemia Low cholesterol t; written instructions provided Next Appt Details Follow Up: 1 Year, Reason: H &P Provider Name:Jovany Bravo ted, 02/12/2024 09:45:00 AM, [address] [place] [address], [phone], Progress Notes * Examination Category Sub-Category Detail Notes General Examination GENERAL APPEARANCE: well dev eloped, well nourished, in no acute distress HEAD: normocephalic, atrau matic EYES: pupils equal, round, reactive to light and accommodation, sclera non-icteric EARS: LEFT EAR, auditory c anal clear, RIGHT EAR, auditory canal obscured with wax NECK/THYROID: neck supple, full ra nge of motion, no cervical lymphadenopathy, thyroid normal, no carotid bruit HEART: regular rate and rhy thm, S1, S2 normal, no murmurs CHEST: normal LUNGS: clear to auscultatio n bilaterally ABDOMEN: soft, nontender, non distended, bowel sounds present, normal NEUROLOGIC: nonfocal, motor stre ngth normal upper and lower extremities, sensory exam intact SKIN: warm and dry EXTREMITIES: no edema PERIPHERAL PULSES: 2+ dorsalis pedis, 2 + posterior tibial MALE GENITOURINARY no hernia, no penile lesions or discharge, no testicular mass, testes descended bilaterally PSYCH: alert, oriented, cog nitive function intact, cooperative with exam, good eye contact, judgement and insight good History and Physical Notes * HPI (History of Present Illness) Category Sub-Category Detail Notes Depression Screening PHQ-9 Little inte rest or pleasure in doing things: Not at all Feeling down, depressed, or hopeless: No t at all Trouble falling or staying asleep, or sl eeping too much: Not at all Feeling tired or having little energy: N ot at all Poor appetite or overeating: Not at all Feeling bad about yourself o r that you are a failure, or have let yourself or your family down: Not at all Trouble concentrating on thi ngs, such as reading the newspaper or watching television: Not at all Moving or speaking so slowly that other people could have noticed; or the opposite, being so fidgety or restless that you have been moving around a lot more than usual: Not at all Thoughts that you would be b annamaria off or of hurting yourself in some way: Not at all Total Score: 0 Interpretation and Intervention Depression Ashleigh mckay Findings: Negative Follow-Up for Depression: : Review of PH Q-9 found negative result; no follow-up needed Treatment Goals Continue current med ication Self-Managment Goals Exercise at least 3 xs per week Fall Risk Fall History Have you had two or more fal ls in the past year?: No Have you had any falls with injury in th e past year?: No Fall Risk Assessment:: No falls in the p ast year Communication Needs [facility] Communication Needs - [facility] He aring Impairment?: No Vision Impairment?: No Cognitive Impairment?: No
--- OUTSIDE RECORDS SUMMARY | 2024-02-08 15:10 | XMS_ITS | Patient Health Record ---
Author Organization [facility] Address [address] [place] [phone] Care Team Providers Care Hammerer Helper Name Role Phone Jovany Rasmussen DO Primary Care Provider Unavail able Dinh Middleton Valentin Unavailable REASON FOR REFERRAL No Information MEDICATIONS Medication SIG (Take, Route, Frequency, Duration) Notes Start Date End Date Status MiraLax (colon prep) 17 GM/SCOOP mixed with Gatorade or Crystal Light Orally begin at 5:00 p.m. the day before the procedure for 1 day 04/28/2021 Active Pravastatin Sodium 20 MG 1 tablet Orally Once a day Active Vitamin D 1000 UNIT 1 tablet Orally Once a day Active Sertraline HCl 50 MG 1 tablet Orally Onc e a day Active IMMUNIZATIONS Vaccine Route Administration Date Status Comme nts Influenza Unknown 12/26/2017 Refused SOCIAL HISTORY Tobacco Use: Social History Observation Description Date Details (start date - stop date) Never Smoker NA - NA Sex Assigned At : Social History Observation Description Sex Assigned At Unknown Tobacco Use/Smoking Question Answer Notes Patient is a nonsmoker Alcohol Screen Question Answer Notes Did you have a drink contain ing alcohol in the past year? Yes How often did you have a dri nk containing alcohol in the past year? 2 to 4 times a month (2 points) How many drinks did you have on a typical day when you were drinking in the past year? 5 or 6 drinks (2 points) How often did you have 6 or more drinks on one occasion in the past year? Monthly (2 points) Points 6 Interpretation Positive PROBLEMS Problem Type ICD Code Onset Dates Problem Status W/U Status Risk SNOMED Code Notes Problem Colon cancer screening (Z12.11) Active confirmed 116486380 Problem Encounter for other preprocedural examination (Z01.818) Active confirmed 40067813 PLAN OF TREATMENT Future Test Test Name Order Date COLONOSCOPY 12/26/2017 COLONOSCOPY 04/28/2021 Insurance Providers Payer Name Payer Address Payer Phone Subscriber Number Group Number Insured Name Patient Relationship to Insured Coverage Start Date Coverage End Date [facility] [address] [facility] [place] [phone] [id number] ADELINA KUO Self - patient is the insured MEDICAL (GENERAL) HISTORY Medical History History ICD Code elevated cholesterol anxiety vitamin D deficiency covid positive 02/2021 Surgical History Surgery Date(Month/Year) knee surgery MCL-right
--- OUTSIDE RECORDS SUMMARY | 2024-02-08 15:10 | XMS_ITS ---
Author Organization Jovany Rasmussen DO FACP Address [address], [place] [phone] Care Team Providers Care Yard General Car Supervisor Name Role Phone Jovany Rasmussen Primary Care Provider [phone] ALLERGIES No Known Allergies REASON FOR REFERRAL Reason Snoring Daytime fa tigue ? EYAL Diagnosis 1 Snoring (R06.83) Referral Organization Jovany Kirby, [facility] Referring Provider First Name Jovany Referring Provider Last Name Grady Referring Provider Speciality Internal M edicine Referred Provider Prabhjot Candelario Referred Provider Specialty Pulmonary Di seases General Notes Vonnie Galindo 023 09:54:15 AM EDT > referral faxed; specialist's office will call patient to schedule appointment., Vonnie Galindo 02/07/2023 10:07:46 AM EST >referral re-faxed; specialist's office will call patient to schedule appointment. Patient will notify this office if he has not been contacted within a week. Referral Priority Routine Referral Appointment Date 03/09/2023 REASON FOR VISIT Follow up anxiety, hypertriglyceridemia MEDICATIONS Medication SIG (Take, Route, Frequency, Duration) Notes Start Date End Date Status Vitamin D3 25 MCG (1000 UT) 1 tablet Ora lly Once a day Active Sertraline HCl 50 MG 1 tablet Orally Onc e a day Active Rosuvastatin Calcium 40 MG [...] Points 2 Interpretation Negative VITAL SIGNS BMI 25.01 kg/m2 10/02/2022 Height 66 in 10/02/2022 Weight 155 lbs 10/02/2022 Encounters Encounter Location Date Provider Diagnosis Jovany Rasmussen DO, FAC [address], [place] [phone] 10/02/2022 Jovany Rasmussen Hypertriglyceridemia E78.1 ; Anxiety F41.9 ; Vitamin D deficiency E55.9 ; Snoring R06.83 and Prostate cancer screening Z12.5 ASSESSMENTS Encounter Date Diagnosis Assessment Notes Treatment Notes Treatment Clinical Notes 10/02/2022 Hypertriglyceridemia (ICD-10 - E78.1) 10/02/2022 Anxiety (ICD-10 - F41.9) 10/02/2022 Vitamin D deficiency (ICD-10 - E55.9) 10/02/2022 Snoring (ICD-10 - R06.83) 10/02/2022 Prostate cancer scre ening (ICD-10 - Z12.5) PLAN OF TREATMENT Medication Medication Name Sig Start Date Stop Date Notes Vitamin D3 25 MCG (1000 UT) 1 tablet Orally Once a day Sertraline HCl 50 MG 1 tablet Orally Once a day Rosuvastatin Calcium 40 MG 1 tablet Orally Once a day Referrals Referral Date Details 03/09/2023 03/09/2023, Snoring Daytime fatigue ? EYAL , Robertd Andree Next Appt Details Follow Up: 4 Months, Reason: H&P,review lab work Provider Name:Jovany Katie jean, 02/12/2024 09:45:00 AM, [address] [place], [place], [phone], Progress Notes * Examination Category Sub-Category Detail Notes General Examination PSYCH: alert, orien shailesh, cognitive function intact History and Physical Notes * HPI (History of Present Illness) Category Sub-Category Detail Notes New symptom(s) Telehealth Location of provider:: Pro an's home address Location of patient:: Address listed in demographics for today's visit Patient identification confirmed using:: Name, Telehealth method:: Telephone only. Maria De Jesus ent not visible to care provider. Consent:: Patient verbally c onsented to treatment, Patient verbally consented to billing insurance company, Patient informed of any privacy concerns related to method of visit Total time spent with patient (mins): 31 Disclaimer: This Telehealth visit is being conducted per CDC recommendations due to the COVID-19 outbreak. Depression Screening PHQ-9 Little inte rest or [...] No falls in the p ast year Consultation Request Notes Referral Date Referring Provider Referred Provider Not bianka 10/02/2022 Jovany Rasmussen Mohammad Snoring Daytime fatigue ? EYAL
== END 2024-02-08 15:42 | disposition home or self-care (01) ==
PROVIDERS: PCP Internal Medicine; Visit Provider Nurse Practitioner Family
DX: G47.33 Obstructive sleep apnea (adult) (pediatric) (principal); G47.34 Idiopathic sleep related nonobstructive alveolar hypoventilation
CPT/HCPCS: 99214

== ENCOUNTER → 2024-02-08 15:07 | Outpatient (BNVA) | payer OTHER, SELFPAY | PROVIDERS: PCP Internal Medicine; Visit Provider Nurse Practitioner Family ==

== ENCOUNTER 2024-05-02 15:57 | Outpatient (AMB) | payer OTHER, SELFPAY ==
--- NOTE | 2024-05-02 15:59 | MHC.OFFVIS ---
Vital Signs 05/02/24 16:00 Height 5 ft 7 in Weight 171 lb BMI 26.8 BP 140/68 H Blood Pressure Location Rt brachial Pulse 79 Pulse Source Pulse Oximeter Pulse Oximetry (%) 96 Oxygen Delivery Method Room Air Intake Visit Reasons: Somnolence Project Management Professor Required: No Law Clerk: Law Clerk offered & declined Accompanied by: Self / Same As Patient Allergies No Known Allergies [No Known Allergies*] Allergy (Verified 05/02/24 16:08) Medication List - Last Reconciled 05/02/24 by Linda Higuera LPN cholecalciferol (vitamin D3) 25 mcg PO DAILY rosuvastatin 40 mg PO DAILY sertraline 50 mg PO DAILY HPI HPI Somnolence: Details: Tevin is a pleasant 58 year old male, never smoker, with underlying GERD and anxiety. At the last visit, he was sent for home sleep study for significant loud snoring and daytime fatigue which revealed severe EYAL with an AHI of 40 and mild nocturnal hypoxemia. He was started on APAP therapy with pressure settings of 6-20 cm. He notes significant benefit and is motivated to continue to use. Today he presents to review compliance report. He currently denies any respiratory symptoms. [facility] Medical History Anxiety History of COVID-19 Hyperlipidemia Subcutaneous mass Surgical History H/O colonoscopy History of knee surgery Family History Other Family history of cancer Social History Alcohol intake: current Alcohol intake frequency: a few times a month Patient Tobacco Use Status: Never used Tobacco Review of Systems Const Denies chills, Denies excessive sweating, Denies fever(s), Denies headache(s) and Denies night sweats Eyes Denies dry eyes, Denies irritation and Denies itchy eyes ENT Reports Normal hearing present, Denies headache(s), Denies nasal congestion, Denies nasal discharge, Denies post nasal drip and Denies sore throat Card Denies chest pain, Denies chest pain at rest, Denies chest pain with activity, Denies claudication, Denies leg edema, Denies dyspnea, Denies dyspnea on exertion, Denies orthopnea and Denies paroxysmal nocturnal dyspnea Resp Denies chest congestion, Denies cough, Denies excessive phlegm production, Denies pain on inspiration, Denies pain with cough, Denies dyspnea, Denies dyspnea on exertion, Denies stridor and Denies wheezing Musc Denies myalgias Neuro Reports Normal hearing present and Denies headache(s) Endo Denies excessive sweating Tadeo/Lymph Denies lymphadenopathy Aller/Immun Denies itchy eyes, Denies seasonal rhinorrhea and Denies wheezing Physical Exam Vital Signs: Last Vital Signs Pulse 79 05/02/24 16:00 BP 140/68 H 05/02/24 16:00 Pulse Ox 96 05/02/24 16:00 Oxygen Delivery Method Room Air 05/02/24 16:00 BMI result Body Mass Index 26.8 Const General: cooperative, healthy appearing, comfortable, no acute distress, well developed and alert Orientation/consciousness: patient oriented x3 Limitations: no limitations HEENT Head: Yes normal to inspection, Yes normocephalic and Yes atraumatic Ears: hearing grossly normal bilaterally and external ears normal Eyes General: appearance normal, both eyes and all related structures Eyelids: Yes eyelids normal Sclerae: sclerae normal EOM: EOMs intact bilaterally Neck Neck: Yes normal visual inspection and Yes no lymphadenopathy Lymphatic: no lymphadenopathy noted Chest Chest palpation & inspection: normal inspection of the chest Resp Effort & Inspection: normal respiratory effort, able to speak in complete sentences, no audible wheezes, no cough, no stridor, not tachypneic, no tripod positioning and no use of accessory muscles Auscultation: clear to auscultation bilaterally Cardio Jugular venous distension: no JVD Rate: regular rate Rhythm: regular rhythm Skin Other: warm, dry General skin exam: no rashes or lesions noted Neuro General: patient oriented x3 Cranial nerves: Yes Normal hearing present Cognition (Neuro): normal cognition Gait exam (Neuro): Normal gait present Extrem General: Yes normal to inspection, Yes capillary refill normal, Yes no clubbing, cyanosis or edema and Yes no pedal edema Psych Appearance: grossly normal and well kempt Speech and movement: Normal speech and movement present and Clear speech present Affect: normal affect Attitude: cooperative Thought process: Normal thought process present Thought content: Normal thought content present Insight: Good insight present (Psych) Judgement: Good judgement present (Psych) Assessment & Plan Assessment & Plan (1) Severe obstructive sleep apnea: Code(s): G47.33 - Obstructive sleep apnea (adult) (pediatric) Category: Medical (2) Nocturnal hypoxemia: Code(s): G47.34 - Idiopathic sleep related nonobstructive alveolar hypoventilation Category: Medical Plan Reviewed compliance report which revealed 100% use >4 hours, average AHI 2.4 with significant leaking noted. He does report not tightening straps and if no improvements, will consider trialing a different mask for a better fit. Will send for overnight oximetry on APAP therapy to ensure resolution of nocturnal hypoxemia. All questions were answered and patient is in agreement of plan. Will follow up in 3-6 months or sooner if needed. Orders: Orders Overnight Pulse Oximetry Today G47.34 - Idiopathic sleep related nonobstructive alveolar hypoventilation Coding Level of Care Code Est Pt Level 4 (20796) Diagnoses Severe obstructive sleep apnea G47.33 Nocturnal hypoxemia G47.34
[2024-05-02 16:00] VITALS: BP 140/68; PULSE 79; O2SAT 96; BMI 26.8
--- OUTSIDE RECORDS SUMMARY | 2024-05-02 17:20 | XMS_ITS | Patient Health Record ---
Author Organization [facility] Address [address] [place] [address] Care Team Providers Care Senior Principal Process Engineer Name Role Phone Grady (RETIRED) Jovany CHACON Primary Care Provid er Unavailable Valentin Tao Jr Unavailable Reason For Referral No Information Medications Medication SIG (Take, Route, Frequency, Duration) Notes [...] tablet Orally Onc e a day Active Immunizations Vaccine Route Administration Date Status Comme nts Influenza Unknown 12/26/2017 Refused Social History Tobacco Use: Social History Observation Description Date Details (start date - stop date) Never Smoker NA - NA Tobacco Use/Smoking Question Answer Notes Patient is [...] Monthly (2 points) Points 6 Interpretation Positive Problems Problem Type SNOMED Code ICD Code Onset Dates Problem Status W/U Status Risk Notes Problem 782326299 Colon cancer screening (Z12.11) Active confirmed Problem [id number] Encounter for other preprocedural examination (Z01.818) Active confirmed Plan Of Treatment Future Test Test Name Order Date COLONOSCOPY 12/26/2017 COLONOSCOPY 04/28/2021 Insurance Providers Payer Name Payer Address Payer Phone Subscriber Number Group Number Insured Name Patient Relationship to Insured Coverage Start Date Coverage End Date [facility] [address] [facility] [place] [phone] [id number] ADELINA KUO Self - patient is the insured Medical (General) History Medical History History ICD Code elevated cholesterol anxiety vitamin D deficiency covid positive 02/2021 Surgical History Surgery Date(Month/Year) knee surgery MCL-right
== END 2024-05-02 16:45 | disposition home or self-care (01) ==
PROVIDERS: PCP Internal Medicine; Visit Provider Nurse Practitioner Family
DX: G47.33 Obstructive sleep apnea (adult) (pediatric) (principal); G47.34 Idiopathic sleep related nonobstructive alveolar hypoventilation
CPT/HCPCS: 99214

== ENCOUNTER 2024-05-24 07:56 | Outpatient (REF) | payer OTHER, SELFPAY ==
[2024-05-24 08:30] LABS: MANUAL DIFF FLAG NO
[2024-05-24 08:34] LABS: Basophils Absolute Auto 0.1 X10*3/uL (0.0-0.2); Basophils Percent Auto 0.9 % (0-2); Eosinophils Absolute Auto 0.3 X10*3/uL (0.0-0.4); Eosinophils Percent Auto 4.8 % (0-4); Hematocrit 43.7 % (42.0-52.0); Hemoglobin 15.8 g/dl (14.0-18.0); Imm Gran Abs Auto 0.03 X10*3/uL (0.00-0.03); Imm Gran Pct Auto 0.4 % (0.0-0.4); Lymphocytes Absolute Auto 1.5 X10*3/uL (1.2-4.9); Mean Corpuscular HGB Conc 36.2 g/dl (31.0-36.0); Mean Corpuscular Hemoglobin 32.6 pg (27.0-33.0); Mean Corpuscular Volume 90.3 fL (80.0-98.0); Mean Platelet Volume 8.7 fL (9.4-12.4); Monocytes Absolute Auto 0.5 X10*3/uL (0.1-1.2); Monocytes Percent Auto 7.9 % (2-11); Neutrophils Absolute Auto 4.3 x10*3/uL (2.0-8.3); Platelet Count 181 X10*3/uL (160-400); Red Blood Count 4.84 X10*6/uL (4.60-5.80); Red Cell Distribution Width 12.4 % (11.0-16.0); White Blood Count 6.7 X10*3/uL (4.8-10.8)
[2024-05-24 09:31] LABS: Alanine Aminotransferase 46 U/L (0-40); Albumin Level 4.6 g/dL (3.5-5.0); Alkaline Phosphatase 121 U/L (39-117); Anion Gap 10 (12-20); Aspartate Amino Transferase 27 U/L (5-37); Bilirubin Total 0.9 mg/dL (0.0-1.0); Blood Urea Nitrogen 13 mg/dL (9-16); Calcium 9.2 mg/dL (8.4-10.2); Carbon Dioxide 26 mmol/L (22-29); Chloride 108 mmol/L (96-108); Cholesterol 92 mg/dL (<200); Estimated Glomerular Filt Rate > 60; Glucose Fasting 116 mg/dL (60-99); HDL Cholesterol 32 mg/dL (>40); LDL Cholesterol Calculated 26 mg/dL (<100); Potassium 4.3 mmol/L (3.3-5.1); Sodium 140 mmol/L (135-145); Total Protein 7.2 g/dL (6.5-8.0); Triglycerides 171 mg/dL (<150)
[2024-05-24 09:37] LABS: Thyroid Stimulating Hormone 1.64 uIU/mL (0.32-4.0); Vitamin D 25-OH Total 31.6 ng/mL (>30)
== END 2024-05-24 07:57 | disposition home or self-care (01) ==
LOC: HO.LAB 07:56
PROVIDERS: PCP Internal Medicine; Visit Provider Internal Medicine
DX: Z00.00 Encounter for general adult medical examination without abnormal findings (principal); E78.1 Pure hyperglyceridemia; F41.9 Anxiety disorder, unspecified; E55.9 Vitamin D deficiency, unspecified; L72.9 Follicular cyst of the skin and subcutaneous tissue, unspecified; G47.33 Obstructive sleep apnea (adult) (pediatric)
CPT/HCPCS: 36415; 80053; 80061; 82306; 84443; 85025

== ENCOUNTER 2024-06-24 14:55 | Outpatient (AMB) | payer OTHER, SELFPAY ==
--- NOTE | 2024-06-24 15:09 | A.OFFVIS_ITS ---
Vital Signs 06/24/24 15:12 Height 5 ft 7 in Weight 171 lb BMI 26.8 BP 148/73 H Blood Pressure Location Rt brachial Position Sitting Pulse 85 Intake Visit Reasons: recurrent cyst back Intake Note: Patient is seen in office for recurrent cyst of the back. Pt c/o: inflamed, red, painful when bumped. Dr Churchill: 05/12/21 Dr Stallworth: 2018 Instructional Consultant Required: No Accompanied by: Self / Same As Patient Allergies No Known Allergies [No Known Allergies*] Allergy (Verified 06/24/24 15:10) Medication List - Last Reconciled 06/24/24 by Roby Churchill MD cholecalciferol (vitamin D3) 25 mcg PO DAILY rosuvastatin 40 mg PO DAILY sertraline 50 mg PO DAILY HPI HPI recurrent cyst back: Details: 52-year-old male here for recurrent cyst on his back. He had undergone excision of this in the operating room under anesthesia in 2021 with the. He says that his has recurred since then. He denies any drainage He says that he had a bad experience with being under anesthesia that time and does not want to be under anesthesia again for excision He says that when Dr. Stallworth had he had this 1st many years ago, he was excised under local anesthesia although this was smaller then. 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 He denies any drainage. [facility] Medical History History of COVID-19 Anxiety Subcutaneous mass Hyperlipidemia Surgical History H/O colonoscopy History of knee surgery Family History Other Family history of cancer Social History Alcohol intake: current Alcohol intake frequency: a few times a month Patient Tobacco Use Status: Never used Tobacco Review of Systems Const Denies chills and Denies fever(s) Card Denies chest pain, Denies dyspnea and Denies dyspnea on exertion Resp Denies cough, Denies dyspnea and Denies dyspnea on exertion GI Denies hematochezia and Denies change in bowel habits Denies hematuria and Denies difficulty urinating Musc Denies back pain and Denies limited range of motion Neuro Denies focal weakness and Denies convulsions Psych Denies depression and Denies mood swings Physical Exam Vital Signs: Last Vital Signs Pulse 85 06/24/24 15:12 BP 148/73 H 06/24/24 15:12 BMI result Body Mass Index 26.8 Const General: comfortable and no acute distress Orientation/consciousness: patient oriented x3 Neck Neck: Yes no lymphadenopathy Resp Auscultation: clear to auscultation bilaterally Cardio Rhythm: regular rhythm GI Palpation (GI): Soft to palpation, nontender and no guarding Back/Spine/Pelvis Other: Large soft tissue mass, seems deep in the subcutaneous area, firm, non fluctuant, some skin changes, no cellulitis ;area encompasses about 7 cm in widest dimension Neuro General: patient oriented x3 Assessment & Plan Assessment & Plan (1) Subcutaneous mass: Code(s): R22.9 - Localized swelling, mass and lump, unspecified Category: Medical Plan: He has a recurrence of this mass in the subcutaneous area. 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 Currently, this is large in size, and appears to extend into the deep subcutaneous area. I therefore explained to him that it may be best to remove this under anesthesia. I explained the technique of this procedure. I reviewed the risks including but not limited to bleeding, infections, poor healing, recurrence, as well as the benefits and alternatives He says he does not really want anesthesia again and says that he wants to do this under local anesthesia. He says that this had been removed previously by Dr. Stallworth under local anesthesia although this was smaller before. He says that he would like to consult with Dr. Stallworth about under local anesthesia in the office. We will therefore arrange for him to be seen by Dr. Stallworth again. Coding Level of Care Code Est Pt Level 3 (53810) Diagnoses Subcutaneous mass R22.9
[2024-06-24 15:12] VITALS: BP 148/73; PULSE 85; BMI 26.8
== END 2024-06-24 15:37 | disposition home or self-care (01) ==
PROVIDERS: PCP Internal Medicine; Visit Provider Surgery
DX: R22.9 Localized swelling, mass and lump, unspecified (principal)
CPT/HCPCS: 99213

== ENCOUNTER → 2024-06-24 14:55 | Outpatient (BNVA) | payer OTHER, SELFPAY | PROVIDERS: PCP Internal Medicine; Visit Provider Surgery ==

== ENCOUNTER 2024-08-11 12:48 | Outpatient (AMB) | payer OTHER, SELFPAY ==
--- NOTE | 2024-08-11 12:56 | MHC.OFFVIS ---
Vital Signs 08/11/24 13:02 Height 5 ft 7 in Weight 170 lb BMI 26.6 BP 149/76 H Blood Pressure Location Rt brachial Position Sitting Pulse 94 Intake Visit Reasons: recurrent cyst of the back Intake Note: Patient is seen in office for recurrent cyst of the back. Reports previously surgically excised twice before. Pt c/o: tender to touch. Flare up started a couple of weeks. L.OV: (surgery: 07/12/24 ) Refining Equipment Operator Required: No Accompanied by: Self / Same As Patient Allergies No Known Allergies [No Known Allergies*] Allergy (Verified 08/11/24 13:01) HPI Comments Details: 58-year-old male patient returning with a recurrent lump in the posterior lower back right side. This was excised on 2 previous occasions with pathology pilomatrixoma. No malignancy was identified. The most recent excision was performed on 07/12/2021. He reports soon after the lesion returned and now has become quite large. He has some pain especially when lying on his back. He denies any bleeding or discharge. He is requesting re-excision of this lesion. [facility] Medical History History of COVID-19 Anxiety Subcutaneous mass Hyperlipidemia Surgical History H/O colonoscopy History of knee surgery Family History Other Family history of cancer Social History Alcohol intake: current Alcohol intake frequency: a few times a month Patient Tobacco Use Status: Never used Tobacco Review of Systems Const All systems reviewed & are unremarkable except as noted in HPI and below Physical Exam Vital Signs: Last Vital Signs Pulse 94 08/11/24 13:02 BP 149/76 H 08/11/24 13:02 BMI result Body Mass Index 26.6 Const General: no acute distress Nutritional Appearance: well nourished Orientation/consciousness: patient oriented x3 HEENT Head: Yes normocephalic and Yes atraumatic Resp Effort & Inspection: normal respiratory effort, no audible wheezes, no cough and no respiratory distress GI Inspection: Yes normal to inspection Back/Spine/Pelvis Back/spine/pelvis image: 1. Large mass in the lower back right side with a scar the central portion of the wound measuring approximately 7 x 5 cm. Lesion is concerning for neoplasm although previous biopsies were benign. Neuro General: patient oriented x3 Extrem General: Yes normal to inspection and Yes no clubbing, cyanosis or edema Assessment & Plan Assessment & Plan (1) Subcutaneous mass: Code(s): R22.9 - Localized swelling, mass and lump, unspecified Category: Medical Plan 58-year-old male patient returning for re-evaluation of a recurrent, recurrent skin lesion of the lower right back. This was previously excised and revealed a pilomatrixoma. He now has a very large lesion measuring 7 x 5 cm which is red and very hard. He is requesting an excision under local anesthesia because of a bad reaction to anesthesia with the last excision. I reviewed the procedure, risks, and alternatives, he consents to an excision of the right lower back lesion under local anesthesia as a minor surgery. Coding Level of Care Code New Pt Level 4 (08776) Diagnoses Subcutaneous mass R22.9
[2024-08-11 13:02] VITALS: BP 149/76; PULSE 94; BMI 26.6
== END 2024-08-11 13:42 | disposition home or self-care (01) ==
LOC: HO.HGS 12:49
PROVIDERS: PCP Internal Medicine; Visit Provider Surgery
DX: R22.9 Localized swelling, mass and lump, unspecified (principal)
CPT/HCPCS: 99204

== ENCOUNTER → 2024-08-11 12:48 | Outpatient (BNVA) | payer OTHER, SELFPAY | PROVIDERS: PCP Internal Medicine; Visit Provider Surgery ==

== ENCOUNTER 2024-08-22 13:40 | Outpatient (REF) | payer OTHER, SELFPAY ==
[2024-08-22 14:26] VITALS: BP 142/74; PULSE 89; RESP 18; O2SAT 98; BMI 26.6
--- NOTE | 2024-08-22 15:48 | P.OP_ITS ---
Operative Note Operative Note Date of Service: 08/22/24 Narrative: Preoperative diagnosis: Large mass, right lower back Postoperative diagnosis:same Procedure: Excision of mass right lower back Surgeon: Daniel Stallworth MD Chucking And Sawing Machine Operator: Melissa Valente PA-C; Matilde Reza, MS-3 Anesthesia:Local Indications for procedure: 59 year old male presenting with a recurrent mass in the right lower back now measuring 12 cm in diameter with red inflammed skin suspicious for malignancy Operative findings: Red hard mass right lower back, 12 cm diameter Specimen:Mass right lower back Estimated blood loss: 20 mls Complications: none Procedure details: Patient was brought to the minor surgery suite, and placed in a prone position. The site of surgery was confirmed by the patient in the right lower back. After assuring informed consent, the skin was prepped with betadyne and draped in a sterile fashion. Local was infiltrated around the lesion and an elliptical incision made in a transverse fashion The dissection was continued using the electrocautery to include the surrounding skin and mass. The lesion was disected off the muscle fascia and passed off the table to be sent to pathology. Hemostasis was achieved using electrocautery. Dermis was then reapproximated using interrupted 3-0 polysorb sutures. Skin was then closed using interrupted 3-0 Nylon sutures. Sterile dressings including 4x4 gauze and tegaderm was then applied. The patient tolerated the procedure well and was discharged to home in stable condition.
== END 2024-08-22 13:41 | disposition home or self-care (01) ==
LOC: HO.MS 13:40
PROVIDERS: PCP Internal Medicine; Visit Provider Surgery
PROC: (CPT 11406; principal; 2024-08-22 14:00)
DX: D23.5 Other benign neoplasm of skin of trunk (principal); R22.9 Localized swelling, mass and lump, unspecified
CPT/HCPCS: 11406; 88305; J2004

== ENCOUNTER → 2024-08-22 13:40 | Outpatient (BNV) | payer OTHER, SELFPAY | PROVIDERS: PCP Internal Medicine; Visit Provider Surgery | DX: D23.5 Other benign neoplasm of skin of trunk (principal) | CPT/HCPCS: 21933 ==

== ENCOUNTER 2024-11-04 15:53 | Outpatient (AMB) | payer OTHER, SELFPAY ==
[2024-11-04 16:01] VITALS: BP 130/76; PULSE 79; O2SAT 97; BMI 26.3
--- NOTE | 2024-11-04 16:01 | A.OFFVIS_ITS ---
Vital Signs 11/04/24 16:01 Height 5 ft 7 in Weight 168 lb 4 oz BMI 26.3 BP 130/76 Blood Pressure Location Rt brachial Position Sitting Pulse 79 Pulse Source Pulse Oximeter Pulse Oximetry (%) 97 Oxygen Delivery Method Room Air Intake Visit Reasons: Somnolence Allergies No Known Allergies (No Known Allergies*) Allergy (Verified 11/04/24 16:04) HPI HPI Somnolence: Details: Tevin is a pleasant 59 year old male, never smoker, with underlying severe EYAL on CPAP, GERD and anxiety. He had home sleep study performed in January 2024 which revealed severe EYAL with an AHI of 40 and mild nocturnal hypoxemia. He has been using CPAP therapy in APAP mode with pressure settings of 6-20 cm, benefitting from use. Today he presents to review compliance report. He currently denies any respiratory symptoms. COUNTS INCLUDE 234 BEDS AT THE [facility] Medical History History of COVID-19 Anxiety Subcutaneous mass Hyperlipidemia Surgical History H/O colonoscopy History of knee surgery Family History Other Family history of cancer Social History Alcohol intake: current Alcohol intake frequency: a few times a month Patient Tobacco Use Status: Never used Tobacco Review of Systems Const Denies chills, Denies excessive sweating, Denies fever(s), Denies headache(s) and Denies night sweats Eyes Denies dry eyes, Denies irritation and Denies itchy eyes ENT Reports Normal hearing present, Denies headache(s), Denies nasal congestion, Denies nasal discharge, Denies post nasal drip and Denies sore throat Card Denies chest pain, Denies chest pain at rest, Denies chest pain with activity, Denies claudication, Denies leg edema, Denies dyspnea, Denies dyspnea on exertion, Denies orthopnea and Denies paroxysmal nocturnal dyspnea Resp Denies chest congestion, Denies cough, Denies excessive phlegm production, Denies pain on inspiration, Denies pain with cough, Denies dyspnea, Denies dysp lelia on exertion, Denies stridor and Denies wheezing Musc Denies myalgias Neuro Reports Normal hearing present and Denies headache(s) Endo Denies excessive sweating Tadeo/Lymph Denies lymphadenopathy Aller/Immun Denies itchy eyes, Denies seasonal rhinorrhea and Denies wheezing Physical Exam Vital Signs: Last Vital Signs Pulse 79 11/04/24 16:01 BP 130/76 11/04/24 16:01 Pulse Ox 97 11/04/24 16:01 Oxygen Delivery Method Room Air 11/04/24 16:01 BMI result Body Mass Index 26.3 Const General: cooperative, healthy appearing, comfortable, no acute distress, well developed and alert Orientation/consciousness: patient oriented x3 Limitations: no limitations HEENT Head: Yes normal to inspection, Yes normocephalic and Yes atraumatic Ears: hearing grossly normal bilaterally and external ears normal Eyes General: appearance normal, both eyes and all related structures Eyelids: Yes eyelids normal Sclerae: sclerae normal EOM: EOMs intact bilaterally Neck Neck: Yes normal visual inspection and Yes no lymphadenopathy Lymphatic: no lymphadenopathy noted Chest Chest palpation & inspection: normal inspection of the chest Resp Effort & Inspection: normal respiratory effort, able to speak in complete sentences, no audible wheezes, no cough, no stridor, not tachypneic, no tripod positioning and no use of accessory muscles Auscultation: clear to auscultation bilaterally Cardio Jugular venous distension: no JVD Rate: regular rate Rhythm: regular rhythm Skin Other: warm, dry General skin exam: no rashes or lesions noted Neuro General: patient oriented x3 Cranial nerves: Yes Normal hearing present Cognition (Neuro): normal cognition Gait exam (Neuro): Normal gait present Extrem General: Yes normal to inspection, Yes capillary refill normal, Yes no clubbing, cyanosis or edema and Yes no pedal edema Psych Appearance: grossly normal and well kempt Speech and movement: Normal speech and movement present and Clear speech present Affect: normal affect Attitude: cooperative Thought process: Normal thought process present Thought content: Normal thought content present Insight: Good insight present (Psych) Judgement: Good judgement present (Psych) Assessment & Plan Assessment & Plan (1) Severe obstructive sleep apnea: Code(s): G47.33 - Obstructive sleep apnea (adult) (pediatric) Category: Medical (2) Nocturnal hypoxemia: Code(s): G47.34 - Idiopathic sleep related nonobstructive alveolar hypoventilation Category: Medical Plan Reviewed compliance report which revealed 90% use >4 hours, average AHI 2.6 with moderate leaking noted. He does report not tightening straps, updating supplies when due and has facial hair which may be contributing to poor mask seal. He agreed to make some changes with the mask and will consider trialing a different mask for improved fit. If bleeding continues may need to send her in lab titration study to ensure optimal pressures. Overnight oximetry order was placed at the last visit to ensure resolution of nocturnal hypoxemia with CPAP therapy however patient still waiting. Will look into this. All questions were answered and patient is in agreement of plan. Will follow up in 3-6 months or sooner if needed. Coding Level of Care Code Est Pt Level 4 (41544) Diagnoses Severe obstructive sleep apnea G47.33 Nocturnal hypoxemia G47.34
== END 2024-11-04 16:31 | disposition home or self-care (01) ==
LOC: HO.HPSW 15:54
PROVIDERS: PCP Internal Medicine; Visit Provider Nurse Practitioner Family
DX: G47.33 Obstructive sleep apnea (adult) (pediatric) (principal); G47.34 Idiopathic sleep related nonobstructive alveolar hypoventilation
CPT/HCPCS: 99214

== ENCOUNTER 2024-12-03 15:04 | Outpatient (AMB) | payer OTHER, SELFPAY ==
[2024-12-03 15:03] VITALS: BP 143/80; PULSE 88; RESP 16; TEMP 36.6; O2SAT 98; BMI 26.2
--- NOTE | 2024-12-03 15:03 | A.OFFPC_ITS ---
Vital Signs 12/03/24 15:03 12/03/24 17:28 Height 5 ft 7 in Weight 167 lb BMI 26.2 BP 143/80 H 138/80 Blood Pressure Location Rt brachial Position Sitting Respiration 16 Pulse 88 Pulse Source Pulse Oximeter Temp 97.9 F Temp Source Temporal Artery Scan Pulse Oximetry (%) 98 Oxygen Delivery Method Room Air Intake Visit Reasons: Establish Care Track Service Worker Required: No Accompanied by: Self / Same As Patient Allergies No Known Allergies (No Known Allergies*) Allergy (Verified 12/03/24 15:21) Medication List - Last Reconciled 12/03/24 by Sol Duff PA-C cholecalciferol (vitamin D3) 25 mcg PO DAILY rosuvastatin 40 mg PO DAILY sertraline 50 mg PO DAILY Tobacco use date assessed: 12/03/24 Dental Screening Dental Screen Date: 12/03/24 Did you have a dental visit in the last 12 months?: No Did you have a dental problem in the last 6 months where you did not have access to dental care?: No Was dental information given to patient?: No HPI Establish Care HPI Details The patient is a 59-year-old male presenting for an annual physical examination and to establish care with a new primary care provider. He has a history of vitamin D deficiency and is currently taking a vitamin D supplement. Additionally, he has hyperlipidemia and is on Robisatin 40 mg for management. The patient also reports a history of anxiety, which he attributes to work- related stress. 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 He is currently taking sertraline 50 mg and has never seen a therapist or psychiatrist, nor does he feel the need to. In April, the patient underwent a full panel of blood work, which revealed elevated triglycerides at 171 mg/dL, while other parameters were within normal limits. His fasting glucose was mildly elevated at 116 mg/dL, prompting a hemoglobin A1c test today, which was 5.2%, indicating no diabetes or prediabetes. His liver enzymes, ALT and alkaline phosphatase, were mildly elevated at 46 U/L and 121 U/L, respectively, but have been elevated in the past and subsequently normalized. The patient had a colonoscopy on May 27, 2021, which revealed multiple colonic polyps. He is scheduled for a repeat colonoscopy in two weeks with Dr. Tao. His blood pressure was initially elevated at 143/80 mmHg, but a manual measurement showed 138/80 mmHg. Recently, the patient visited urgent care for upper respiratory symptoms and was diagnosed with a viral infection. He continues to experience coughing and congestion, similar to his and daughter, and inquires about antibiotics. He denies chest pain or shortness of breath and does not feel a chest X-ray is necessary. Social History - Employment: Works at a state job for [employer] 32 years. - Family: Lives with and daughter. [facility] Medical History (Updated 12/03/24 @ 17:32 by Sol Duff PA-C) Hypertension Colonic polyp Upper respiratory infection Elevated liver enzymes Hypertriglyceridemia Anxiety disorder Vitamin D deficiency Annual physical exam History of COVID-19 Anxiety Subcutaneous mass Hyperlipidemia Surgical History H/O colonoscopy History of knee surgery Family History Father Aortic aneurysm Mother Depression Other Family history of cancer Social History Housing: House Alcohol intake: current Alcohol intake frequency: a few times a month Patient Tobacco Use Status: Never used Tobacco service: No Current occupational status: employed Cognitive needs: No Hearing needs: No Vision needs: Yes (rx glasses) Questionnaire PHQ-9 Over the last 2 weeks, how often have you been bothered by any of the following problems? 1. Little interest or pleasure in doing things: not at all 2. Feeling down, depressed, or hopeless: not at all 3. Trouble falling or staying asleep, or sleeping too much: not at all 4. Feeling tired or having little energy: not at all 5. Poor appetite or overeating: not at all 6. Feeling bad about yourself - or that you are a failure or have let yourself or your family down: not at all 7. Trouble concentrating on things, such as reading the newspaper or watching television: not at all 8. Moving or speaking so slowly that other people could have noticed. Or the opposite - being so fidgety or restless that you have been moving around a lot more than usual: not at all 9. Thoughts that you would be better off or of hurting yourself in some way: not at all Total score: 0 Depression Screening Interpretation: Negative Depression Screening Done: Yes 14703 - PHQ-9 Billing: Yes Source: Developed by Drs. Jovany Dyer, Eva Walker, See Decker and colleagues, with an educational ruth from [employer]. Thrive Questionnaire Date Thrive assessed: 12/03/24 I am a: Patient What is your living situation today?: I have a steady place to live Within the past 12 months, did the food you bought not last and you didn't have the money to get more?: Never true Within the past 12 months, did you worry whether your food would run out before you got money to buy more?: Never true Do you have trouble paying for medicines?: No Do you have trouble getting transportation to medical appointments?: No Do you have trouble paying your heating and electricity bill?: No Do you have trouble taking care of your child, family member or friend?: No Do you have trouble with day-to-day activities such as bathing, preparing meals, shopping, managing finances, etc.?: No Are you currently unemployed and looking for a job?: No Are you interested in more education?: No Please select the resources that you would like help with: None THRIVE Score: 0 AUDIT C Alcohol Use Questionnaire (AUDIT-C) 1. How often do you have a drink containing alcohol?: 4 or more times a week 2. How many drinks containing alcohol do you have on a typical day when you are drinking?: 1 or 2 3. How often do you have six or more drinks on one occasion?: Never Total Score: 4 Score Reviewed/Action Taken: No DOMINIC-7 AMB Questionnaire DOMINIC-7 Date DOMINIC - 7 assessed: 12/03/24 Feeling nervous, anxious, or on edge: 0 = Not at all Not being able to stop or control worryin = Not at all Worrying too much about different things: 0 = Not at all Trouble relaxin = Not at all Being so restless that it is hard to sit still: 0 = Not at all Becoming easily annoyed or irritable: 0 = Not at all Feeling afraid as if something awful might happen: 0 = Not at all Total DOMINIC-7 score (0-4 normal; 5-9 mild; 10-14 moderate; 15-21 severe): 0 Source: Developed by Drs. Jovany Dyer, Eva Walker, See Decker and colleagues, with an educational ruth from [employer]. DOMINIC-7 Assessment Billing DOMINIC-7 Assessment Tool: DOMINIC-7 Assessment 51097 Review of Systems Const Details: - General: Denies unintentional weight loss. - Cardiovascular: Denies chest pain. - Respiratory: Reports cough and congestion. Denies shortness of breath. - Gastrointestinal: Denies black or bloody stools. - Neurological: Denies dizziness. - Psychiatric: Reports anxiety related to work. Denies suicidal ideation or homicidal ideation. All systems reviewed & are unremarkable except as noted in HPI and below Physical exam (Primary Care) Vital Signs: Last Vital Signs Temp 97.9 F 12/03/24 15:03 Pulse 88 12/03/24 15:03 Resp 16 12/03/24 15:03 BP 143/80 H 12/03/24 15:03 Pulse Ox 98 12/03/24 15:03 Oxygen Delivery Method Room Air 12/03/24 15:03 Care Plan Goal for BP management: <140/90 at Goal BMI result Body Mass Index 26.2 BMI Assessment/Plan discussion: High BMI High, discussed plan: lifestyle, weight reduction, dietary, physical activity, alcohol moderation and other Tobacco/Smoking Status: Tobacco use Status Tobacco use date assessed 12/03/24 12/03/24 15:09 Patient Tobacco Use Status Never used Tobacco 12/03/24 15:09 PHQ-9: PHQ-9 Score PHQ-9: Total score 0 12/03/24 15:43 Depression Screening Interpretation: Negative Thrive Assessment: Date of Thrive Assessment Date Thrive assessed 12/03/24 12/03/24 15:09 Const Other: Appearance: Alert. Oriented X3. No acute distress. Head: Normal external exam. Normocephalic. Atraumatic. Eyes: Pupils are equal, round, and reactive to light. Extraocular movements intact. Conjunctiva and sclera normal. Eyelids normal. Ears: Cerumen impaction noted in the right ear canal, status post cerumen impaction removal. No complications. The left ear was completely clear. Throat: Pharynx normal. Uvula midline. Moist mucous membranes. Neck: Normal inspection. Neck supple. Full range of motion. No adenopathy. Thyroid Normal. No meningeal signs. No neck mass noted. Cardiovascular: Normal heart rate and rhythm. Heart sound normal. No murmurs noted. Pulses normal throughout. Respiratory: No respiratory distress. Painless inspiration. Breath sounds normal. Lungs clear to auscultation. No wheezes/rales/rhonchi noted. Chest nontender. No accessory muscle usage noted or decreased air movement noted. Abdomen: Soft and nontender. Bowel sounds normal in all 4 quadrants. No distention noted. No organomegaly noted. No visible injury noted. Back: No costovertebral angle tenderness. Full range of motion noted. Skin: Skin warm and dry. Normal skin color. Normal skin turgor. No rashes/lesions/lacerations noted. Extremities: No lower extremity edema. Extremities exhibit normal range of motion. Extremities nontender. No calf tenderness. Neuro: Oriented X 3. No motor deficit. No sensory deficit. Reflexes normal. Normal steady gait. Results AMB Hemoglobin A1c AMB Hemoglobin A1c 5.2 % Last Edit by PHYLLIS Kaur on 12/03/24 15:43 Results Reviewed Results Reviewed: Laboratory Last Values Hgb A1c (Clinic) 5.2 % (4.0-6.0) 12/03/24 15:39 - Labs: Elevated triglycerides at 171 mg/dL, fasting glucose at 116 mg/dL, hemoglobin A1c at 5.2%, ALT at 46 U/L, alkaline phosphatase at 121 U/L. - Procedures: Colonoscopy on 05/27/2021 revealed multiple polyps. Coding Level of Care Code New Pt Level 4 (61591) New Pt Prev Care 40-64y(06484) Diagnoses Annual physical exam Z00.00 Vitamin D deficiency E55.9 Hyperlipidemia E78.5 Anxiety disorder F41.9 Hypertriglyceridemia E78.1 Elevated liver enzymes R74.8 Upper respiratory infection J06.9 Colonic polyp K63.5 Hypertension I10 Additional Codes DOMINIC-7 Assessment Billing - DOMINIC-7 Assessment Tool: DOMINIC-7 Assessment 08466 ([id number]) PHQ-9 - 66553 - PHQ-9 Billing: Yes ([id number]) Time Spent (min) 60 Assessment & Plan Assessment & Plan (1) Annual physical exam: Code(s): Z00.00 - Encounter for general adult medical examination without abnormal findings Category: Medical (2) Vitamin D deficiency: Code(s): E55.9 - Vitamin D deficiency, unspecified Category: Medical Plan: The patient will continue with the current vitamin D supplementation regimen. (3) Hyperlipidemia: Code(s): E78.5 - Hyperlipidemia, unspecified Category: Medical Plan: The patient will continue taking Robisatin 40 mg for hyperlipidemia management. (4) Anxiety disorder: Code(s): F41.9 - Anxiety disorder, unspecified Category: Medical Plan: The patient will continue with sertraline 50 mg and does not require psychiatric referral at this time. (5) Hypertriglyceridemia: Code(s): E78.1 - Pure hyperglyceridemia Category: Medical Plan: The patient is advised to maintain dietary modifications to manage elevated triglycerides. (6) Elevated liver enzymes: Code(s): R74.8 - Abnormal levels of other serum enzymes Category: Medical Plan: The patient will have liver function tests monitored periodically due to mildly elevated liver enzymes. (7) Upper respiratory infection: Code(s): J06.9 - Acute upper respiratory infection, unspecified Category: Medical Plan: The patient is advised to monitor symptoms and return if they worsen; Z-Andrew prescribed at this time. (8) Colonic polyp: Code(s): K63.5 - Polyp of colon Category: Medical Plan: The patient is scheduled for a repeat colonoscopy in two weeks with Dr. Tao. (9) Hypertension: Code(s): I10 - Essential (primary) hypertension Category: Medical Plan: The patient's blood pressure will be monitored, and lifestyle modifications are recommended. Plan Plan Patient was informed and verbally consented to the use of an ambient scribe for clinic note documentation during this visit. 1. Vitamin D Deficiency The patient will continue with the current vitamin D supplementation regimen. 2. Hyperlipidemia The patient will continue taking Robisatin 40 mg for hyperlipidemia management. 3. Anxiety Disorder The patient will continue with sertraline 50 mg and does not require psychiatric referral at this time. 4. Elevated Triglycerides The patient is advised to maintain dietary modifications to manage elevated triglycerides. 5. Mildly Elevated Liver Enzymes The patient will have liver function tests monitored periodically due to mildly elevated liver enzymes. 6. Upper Respiratory Infection The patient is advised to monitor symptoms and return if they worsen; Z-Andrew prescribed at this time. 7. History Of Colonic Polyps The patient is scheduled for a repeat colonoscopy in two weeks with Dr. Tao. 8. Hypertension The patient's blood pressure will be monitored, and lifestyle modifications are recommended. I discussed with the patient the importance of continuing his current medications for vitamin D deficiency, hyperlipidemia, and anxiety. We reviewed his recent lab results, noting the elevated triglycerides and mildly elevated liver enzymes, and I advised dietary modifications and periodic monitoring. We also discussed his upper respiratory symptoms, and I recommended monitoring without antibiotics at this time. The patient is scheduled for a repeat colonoscopy in two weeks, and we will follow up on his blood pressure management. Orders: Orders UA CC w/rflx Micro + Cult Today Z00.00 - Encounter for general adult medical examination without abnormal findings PSA,Total (Free>4and<10) Today Z00.00 - Encounter for general adult medical examination without abnormal findings AMB Hemoglobin A1c Today Z13.9 - Encounter for screening, unspecified Medications: New rosuvastatin 40 mg PO DAILY 90 tabs 3RF azithromycin For 250 mg dose pack: take 500 mg today (day 1), then 250 mg for 4 days (days 2-5) PO 6 tabs 0RF Refilled sertraline 50 mg PO DAILY 90 tabs 3RF cholecalciferol (vitamin D3) 25 mcg PO DAILY 90 tabs 3RF Patient Instructions: - Continue taking all prescribed medications as directed. - Follow dietary recommendations to manage triglyceride levels. - Monitor respiratory symptoms and seek care if they worsen. - Attend scheduled colonoscopy in two weeks. - Return for follow-up in six months to a year.
[2024-12-03 17:28] VITALS: BP 138/80
== END 2024-12-03 16:02 | disposition home or self-care (01) ==
PROVIDERS: PCP Internal Medicine; Visit Provider Physician Assistant Medical
DX: Z00.00 Encounter for general adult medical examination without abnormal findings (principal); J06.9 Acute upper respiratory infection, unspecified; E55.9 Vitamin D deficiency, unspecified; E78.5 Hyperlipidemia, unspecified; F41.9 Anxiety disorder, unspecified; E78.1 Pure hyperglyceridemia; R74.8 Abnormal levels of other serum enzymes; K63.5 Polyp of colon; I10 Essential (primary) hypertension; Z13.9 Encounter for screening, unspecified

== ENCOUNTER → 2024-12-03 15:04 | Outpatient (BNVA) | payer OTHER, SELFPAY | PROVIDERS: PCP Internal Medicine; Visit Provider Physician Assistant Medical | DX: Z00.00 Encounter for general adult medical examination without abnormal findings (principal); E55.9 Vitamin D deficiency, unspecified; E78.5 Hyperlipidemia, unspecified; F41.9 Anxiety disorder, unspecified; E78.1 Pure hyperglyceridemia; R74.8 Abnormal levels of other serum enzymes; J06.9 Acute upper respiratory infection, unspecified; K63.5 Polyp of colon; I10 Essential (primary) hypertension | CPT/HCPCS: 83036; 96127 ==

== ENCOUNTER 2024-12-16 07:29 | Day surgery (SDC) | payer OTHER, SELFPAY ==
[2024-12-12 10:27] VITALS: BMI 27.0
--- NOTE | 2024-12-15 08:43 | HO.ANESPROP2 ---
Documented by User: Leeanna Kingston NP 12/15/24 08:44 HPI - Anesthesia Eval Consult details Narrative: 59yo M for Colonoscopy PMFSH Active Problems Active Problems: All Active Problems Nocturnal hypoxemia (Acute) Severe obstructive sleep apnea (Acute) Daytime somnolence (Acute) Hypertension (Acute) Colonic polyp (Acute) Upper respiratory infection (Acute ~11/2024) Elevated liver enzymes (Acute) Hypertriglyceridemia (Acute) Anxiety disorder (Acute) Vitamin D deficiency (Acute) Annual physical exam (Acute) Subcutaneous mass (Acute) Hyperlipidemia (Acute) Past Medical History Medical History Hypertension Colonic polyp Upper respiratory infection (~11/2024) Elevated liver enzymes Hypertriglyceridemia Anxiety disorder Vitamin D deficiency Annual physical exam History of COVID-19 Anxiety Subcutaneous mass Hyperlipidemia Family History Family History Father Aortic aneurysm Mother Depression Other Family history of cancer Family history of problems with anesthesia: No Surgical History Surgical History H/O colonoscopy (05/27/21) History of knee surgery History of Problems with Anesthesia: No Social History Social History Housing: House Alcohol intake: current Alcohol intake frequency: a few times a month Patient Tobacco Use Status: Never used Tobacco Use of substances other than those prescribed or required for medical reasons: Yes Substance Use Frequency: Daily Advance Directives: No Advance Directives Information Provided: Yes service: No Current occupational status: employed Cognitive needs: No Hearing needs: No Vision needs: Yes (rx glasses) Meds Allergies Allergy/AdvReac Type Severity Reaction Status Date / Time No Known Allergies (No Known Allergy Verified 12/03/24 15:21 Allergies*) Exam Height,Weight and Vital Signs: Height 5 ft 6 in Weight 75.75 kg Assessment and Plan Assessment Anesthesia Assessment: Chart Reviewed Final Anesthetic Review Family History of Problems with Anesthesia: No History of Problems with Anesthesia: No Documented by User: Brenda Contreras MD 12/16/24 08:47 PMFSH Past Medical History Medical History Hypertension Colonic polyp Upper respiratory infection (~11/2024) Elevated liver enzymes Hypertriglyceridemia Anxiety disorder Vitamin D deficiency Annual physical exam History of COVID-19 Anxiety Subcutaneous mass Hyperlipidemia Family History Family History Father Aortic aneurysm Mother Depression Other Family history of cancer Surgical History Surgical History H/O colonoscopy (05/27/21) History of knee surgery Social History Social History Housing: House Alcohol intake: current Alcohol intake frequency: a few times a month Patient Tobacco Use Status: Never used Tobacco Use of substances other than those prescribed or required for medical reasons: Yes Substance Use Frequency: Daily Advance Directives: No Advance Directives Information Provided: Yes service: No Current occupational status: employed Cognitive needs: No Hearing needs: No Vision needs: Yes (rx glasses) Meds Allergies Allergy/AdvReac Type Severity Reaction Status Date / Time No Known Allergies (No Known Allergy Verified 12/03/24 15:21 Allergies*) Exam Airway Mallampati Class: II TM Dist: >3cm Neck ROM: Full Loose/Missing/Broken Teeth: No Heart: RRR Lungs: CTA Assessment and Plan Assessment Anesthesia Assessment: Anesthesia Plan Discussed Final Anesthetic Review NPO: Yes ASA Class: III Final Preanesthetic Review: Meds/Allgs Chart Reviewed, Consent Obtained/Reviewed and Anes Risks/Benef Reviewed Patient Risk: Intermediate Procedure Risk: Low Anesthetic Plan Anesthetic Plan: MAC: Disposition: Standard PACU
[2024-12-16 07:47] VITALS: BMI 26.4
[2024-12-16 08:02] VITALS: BP 132/85; PULSE 89; RESP 16; TEMP 36.4; O2SAT 95
[2024-12-16] MEDS: Lactated Ringers 1,000 ML 100 ML IVCONT (08:03)
--- NOTE | 2024-12-16 08:54 | MHC.SHP ---
Pre-Procedural Eval Section A - 24 Hr Update-Section A only Date of Service: 12/16/24 The patient is an INPATIENT: No Changes since office visit: No Cold of Flu in the past 2 weeks, No New Medical Problems, No Changes in Medication and No Patient answered all questions The patient has been examined within 24 hours of the surgical procedure. The History & Physical has been completed within 30 days and I have reviewed it.: Yes Section B - Complete if H&P > 30 days Chief Complaint: screening Allergies: Allergies Allergy/AdvReac Type Severity Reaction Status Date / Time No Known Allergies (No Known Allergy Verified 12/03/24 15:21 Allergies*) Plan I have reviewed the history and physical and performed a pertinent physical examination on my patient. No changes have occurred unless specified. Time Spent With Patient Time: Total time managing care of this patient today ____ minutes.
[2024-12-16 09:32] VITALS: BP 116/70; PULSE 77; RESP 16; TEMP 36.2; O2SAT 96
[2024-12-16 09:45] VITALS: BP 129/96; PULSE 68; RESP 16; TEMP 36.2; O2SAT 97
--- NOTE | 2024-12-16 11:03 | OP_ITS ---
DATE OF SERVICE: 12/16/2024 SURGEON: Valentin Tao MD INDICATIONS: Colon cancer screening and prior history of adenomatous colon polyps. PREOPERATIVE DIAGNOSIS: POSTOPERATIVE DIAGNOSIS: PROCEDURE PERFORMED: Colonoscopy to the terminal ileum with snare polypectomy. ESTIMATED BLOOD LOSS: COMPLICATIONS: ANESTHESIA: Monitored anesthesia care. ASSISTANTS: SPECIMENS: DESCRIPTION OF PROCEDURE: A history and physical was performed. The risks and benefits of the procedure were explained to the patient, and informed consent was obtained. The patient was placed in the left lateral decubitus position. A digital rectal exam was performed and was found to be normal. The Olympus pediatric video colonoscope was introduced into the rectum and advanced to the cecum. The cecum was identified by transillumination, palpation, and identification of ileocecal valve examination was performed. The scope was removed. He tolerated the procedure well was returned to the recovery area in stable condition. FINDINGS: The terminal ileum was examined and appeared normal. The visualized colonic mucosa was within normal limits without evidence of masses or ulcers. Multiple polyps were identified and removed with a cold snare. These were located at 50 cm, 35 cm, and 20 cm; all measured less than 10 mm. There was mild sigmoid diverticulosis. Retroflexed examination was normal. IMPRESSION: Colon polyps. RECOMMENDATION: Follow up the biopsy results. MD LIVIA Boggs/AROLDO / [id number]
== END 2024-12-16 10:02 | disposition home or self-care (01) ==
PROVIDERS: PCP Internal Medicine; Visit Provider Internal Medicine Gastroenterology
PROC: 0DJD8ZZ Inspection of Lower Intestinal Tract, Via Natural or Artificial Opening Endoscopic (ICD-10-PCS; CPT 45378; principal; 2024-12-16 09:10)
DX: Z12.11 Encounter for screening for malignant neoplasm of colon (principal); Z86.0101 Personal history of adenomatous and serrated colon polyps; K57.30 Diverticulosis of large intestine without perforation or abscess without bleeding; D12.7 Benign neoplasm of rectosigmoid junction; D12.5 Benign neoplasm of sigmoid colon; D12.3 Benign neoplasm of transverse colon
CPT/HCPCS: 45385; 88305; J2003; J2704